=== PATIENT | female | born 1935 | race Caucasian/White ===

== ENCOUNTER 2016-10-06 13:27 | Inpatient (IN) | payer OTHER ==
[~2016-10-06] VITALS: Ht 160 cm; Wt 91.0 kg
[~2016-10-06 13:27] MED LIST: ARTISOL8 OPB; AZAT50TA17 PEG; ELCCR115 TOP; ESCI5TAB PEG; GLIP5TAB3 PO; NITR0.4S UT; NYSS/ PO; OXYC1TAB3 PO; PRED20TA PEG; SYN150 PEG; TIMO0.2534 OPB; TRIA0.1L TOP; TRIA3AER NAE; VERA120T5 PEG; [UNRECOGNIZED DRUG - CODE] PEG
[2016-10-06] MEDS ORDERED: ONDANSETRON INJ 2 MG/ML 2 ML VIAL IV STA (14:50)
[2016-10-06] MEDS ORDERED: SODIUM CHLORIDE 0.9% 1000ML 1,000 ML IV STA ×2 (14:50)
--- NOTE | 2016-10-06 15:17 | DIAGNOSTIC IMAGING REPORT ---
CHEST ONE VIEW PORTABLE CLINICAL HISTORY: Pain radiating to the abdomen. Flulike virus. COMPARISON STUDY: No previous studies for comparison. FINDINGS: The heart is within normal limits in size. There is no focal pulmonary consolidation. There is slight interstitial prominence without evidence of overt failure. There are no pleural effusions.[ No free air is visualized. IMPRESSION: No active disease in the chest. Electronically signed by: Last Duque M.D. 10/06/2016 3:15 PM
[2016-10-06] MEDS ORDERED: MULT-506 PO (15:53)
[2016-10-06] MEDS ORDERED: PRLSR20 PO (15:53)
[2016-10-06 16:04] LABS: BASO % 0.1 %; BASO ABS # 0.01 K/uL (0-0.2); COMPLETE YES; EOS % 0.1 %; HEMATOCRIT 43.7 % (37-47); IG% 0.3 %; LYMPH % 1.8 %; LYMPH ABS # 0.21 K/uL (1.2-3.4); MEAN CORPUSCULAR HEMOGLOBIN 31.8 pg (25-34); MEAN CORPUSCULAR HGB CONC 34.6 g/dl (32-36); MEAN PLATELET VOLUME 12.3 fL (7.4-10.4); MONO % 1.4 %; NEUT % 96.3 %; PLATELET COUNT 175 K/uL (130-400); RED BLOOD COUNT 4.75 M/uL (4.2-5.4)
[2016-10-06 16:57] LABS: ALKALINE PHOSPHATASE 41 U/L (45-117); ALT/SGPT 28 U/L (12-78); AST/SGOT 31 U/L (15-37); BLOOD UREA NITROGEN 21 mg/dl (7-18); BUN/CREATININE RATIO 21.4 (10-20); CALCIUM 8.5 mg/dl (8.5-10.1); CARBON DIOXIDE 22 mmol/L (21-32); CHLORIDE 106 mmol/L (98-107); CKMB/CK RATIO 0.6 (0-3.0); GLUCOSE 197 mg/dl (70-99); POTASSIUM 3.8 mmol/L (3.5-5.1); SODIUM 140 mmol/L (136-145)
[2016-10-06] MEDS ORDERED: OXYCODONE HCL IR 5 MG TAB (IMMEDIATE RELEASE) PO PRN (20:00)
[2016-10-06] MEDS ORDERED: ARTIFICIAL TEARS OP SOLN OPB PRN ×2 (20:00)
[2016-10-06] MEDS ORDERED: ONDANSETRON INJ 2 MG/ML 2 ML VIAL IV PRN (20:15)
[2016-10-06] MEDS ORDERED: MAGNESIUM HYDROXIDE SUSP 30 ML UDC PO PRN (20:15)
[2016-10-06] MEDS ORDERED: ACETAMINOPHEN 325 MG TAB PO PRN (20:15)
[2016-10-06] MEDS: INSULIN ASPART 100 UNITS/ML 3 ML PEN SC SCH (21:00)
[2016-10-06] MEDS ORDERED: GLUCAGON FOR INJ 1 MG VIAL SQ PRN (21:00)
[2016-10-06] MEDS ORDERED: VERAPAMIL HCL 40 MG TAB PEG SCH (21:00)
[2016-10-06] MEDS ORDERED: GLUCOSE 10 TABS/TUBE PO PRN (21:00)
[2016-10-06] MEDS ORDERED: DEXTROSE 50% 50 ML SYR IV PRN (21:00)
[2016-10-06] MEDS ORDERED: GLUCOSE 40% GEL 15 GM TUBE PO PRN (21:00)
[2016-10-06 22:00] VITALS: BP 119/72; PULSE 108; TEMP 38.5; O2SAT 94
[2016-10-06 22:17] LABS: PROTHROMBIN TIME (PATIENT) 11.1 SECONDS (9.0-12.0)
[2016-10-06] MEDS: SODIUM CHLORIDE 0.9% 1000ML 1,000 ML IV SCH (22:34)
[2016-10-06 23:14] VITALS: Ht 160 cm; Wt 91.0 kg
[2016-10-06 23:29] VITALS: BP 111/64; PULSE 92; TEMP 38.5; O2SAT 97
[2016-10-06] MEDS ORDERED: IV FLUIDS COMPLETED PRN (23:30)
[2016-10-06 23:57] LABS: URINE APPEARANCE CLOUDY (CLEAR); URINE COLOR DK YELLOW; URINE EPITHELIAL CELL AUTO >30 /lpf (0-5); URINE NITRITE NEG (NEG); URINE PH 5.5 (4.5-7.5); URINE SPECIFIC GRAVITY 1.034 (1.000-1.030); UROBILINOGEN NEG (NEG); ZZUR CULT IF INDIC CLEAN CATCH YES
[2016-10-07 00:08] LABS: MANUAL MICROSCOPIC REQUIRED? NO; REVIEW REQ? YES; URINE BILIRUBIN NEG (NEG)
[2016-10-07] MEDS: CIPROFLOXACIN / D5W 400 MG in PREMIXED IN D5W 200 ML IV SCH ×3 (00:10→20:46)
[2016-10-07] MEDS ORDERED: NURSING VERBAL MED ORDER ONE (00:30)
--- NOTE | 2016-10-07 00:36 | HISTORY & PHYSICAL EXAMINATION ---
DATE OF ADMISSION: 10/06/2016 REASON FOR PRESENTATION: Diarrheal illness. HISTORY OF PRESENT ILLNESS: Ms. 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 The patient also has had some Sjogren's syndrome and dermatomyositis. The patient states that [facility], she returned home and ate some turkey which was leftover from [employer]. Her and she ate the turkey; they both became sick around 12:30 the day of admission. She has muscle pains all over her body, has focal abdominal pain and loose brown malodorous diarrhea. The patient typically has pain all over from her multiple health problems. She, however, is not having any rigors or shaking chills. PAST MEDICAL HISTORY: For autoimmune hepatitis, peptic ulcer disease with esophageal stricture, impaired fasting glucose, diabetes, hypothyroidism, Sjogren's syndrome, chronic back pain with lumbar spinal stenosis, glaucoma, rectocele repair, breast biopsy, rotator cuff repair, tubal ligation and cataract surgery. SOCIAL HISTORY: She is . She has 3 children. She denies any tobacco or alcohol use. FAMILY HISTORY: Hypertension and diabetes. MEDICATIONS: Include the following; azathioprine 150 mg a day, verapamil 120 a day, OxyIR as needed, Synthroid 175 mcg a day, artificial tears 2 drops as needed, omeprazole 20 a day, multivitamin once a day and Glucotrol 2.5 q. 12 hours. REVIEW OF SYSTEMS: Ten systems were reviewed and are negative unless listed above. PHYSICAL EXAMINATION: GENERAL: She is a pleasant female. VITAL SIGNS: She was febrile at 38.5, pulse 108, respirations 20, BP 118/72. HEENT: PERRL, EOMI. Oropharynx clear. She has maybe dry mucous membranes. NECK: Without lymphadenopathy. Trachea is midline. HEART: Regular without murmurs. LUNGS: Clear without wheezes or crackles. ABDOMEN: Normoactive bowel sounds, soft, mildly tender in the epigastrium. EXTREMITIES: Without cyanosis, clubbing or edema. NEUROLOGIC: She is awake, alert and appropriate. Cranial nerves II-XII are intact. Equal symmetrical strength and sensation. LABORATORY DATA: She has white count of 11, H\T\H 15 and 43, platelet count 175, BUN and creatinine of 21 and 1.0, glucose 197. INR is normal. Chest x-ray is unremarkable. ASSESSMENT: An 81-year-old immunosuppressed female here with diarrheal illness similar to her 's. PLAN: The patient will be observed in our facility. She will be hydrated with fluids. She will be maintained on her Imuran dose at this time. The patient will be placed on antibiotics. If an infectious diarrhea, we will have to use ciprofloxacin in this case. The patient will be maintained on her home medications. She will have an insulin sliding scale used for diabetic management as her oral intake is unknown at this time. Stool cultures, blood cultures and urine cultures will be sent. Heparin will be used for DVT prevention and her Calan dose will need to be clarified as was last recorded via PEG. choose extended release b.i.d. as her blood pressure is in stable condition at this time. A proton pump inhibitor will be given intravenously. She is a full code. MTDD
[2016-10-07] MEDS: HEPARIN SOD 5000 UNIT/0.5 ML CARP SQ SCH ×3 (00:43→20:58)
[2016-10-07] MEDS ORDERED: NAPROXEN 250 MG TAB PO PRN (00:45)
--- NOTE | 2016-10-07 00:58 | EMERGENCY ROOM VISIT NOTE ---
History Report prepared by Susan: Shea Ortiz Under the Supervision of: Dr. Bud Juarez M.D. First contact with patient: 14:36 Chief Complaint: VOMITING Stated Complaint: FLU Nursing Triage Summary: Triage Note; pt reports nausea, vomitting, diarrhea since 0600 today. History of Present Illness The patient is an 81 year old female who presents to the Emergency Room with complaints of persistent vomiting and diarrhea that started around 0600 this morning. She is accompanied by her , who is also sick, and her daughter. The last time she vomited or experienced diarrhea was around 1230 today, before she came to the ED. She currently complains of muscle pains "all over" her body. She has a history of spinal stenosis and complains of increased back pain recently. She also admits to some intermittent chest pain for the past 3 to 4 weeks, but states she is scheduled to see her [employer], Dr. Ge with [facility], later this week for these symptoms. She reports both she and her ate leftover turkey with gravy recently, and she thinks that may have caused their symptoms. She denies any recent antibiotic use. The patient denies LOC, headache, fevers, chills, diaphoresis, visual changes, neck pain, breathing difficulties, abdominal pain, back pain, melena, hematochezia, urinary symptoms, numbness, weakness, lymphadenopathy, rash, or other complaints. Source of History: patient, family Onset: 0600 this morning Position: abdomen Timing: other (persistent) Associated Symptoms: + back pain, + chest pain, + nausea Review of Systems See HPI for pertinent positives and negatives. A total of ten systems were reviewed and were otherwise negative. Past Medical & Surgical Medical Problems: (1) Autoimmune hepatitis (2) Diarrhea (3) new start tube feeding (4) Spinal stenosis Social History Smoking Status: Never Smoker Smokeless Tobacco Use: No Alcohol Use: none Drug Use: none Marital Status: Housing Status: lives with family Occupation Status: retired Current/Historical Medications Scheduled Artificial Tears (Artificial Tears), 1-2 DROPS OPB PRN Azathioprine (Imuran), 150 MG PEG DAILY @ NOON Glipizide (Glucotrol), 2.5 MG PO Q12 Levothyroxine (Synthroid *), Unknown Dose PEG QAM Multivitamin (Multivitamin), 1 TAB PO DAILY Nitroglycerin (Nitrostat), 0.4 MG UT PRN Oxycodone Ir (Roxicodone Ir), 5 MG PO BID PRN Verapamil Hcl (Calan), 120 MG PEG TID Scheduled PRN Omeprazole (Prilosec), 20 MG PO DAILY PRN for Nausea Allergies Coded Allergies: Penicillins (Verified Allergy, Unknown, 12/08/[address] ALLERGIES PER DR CLARK H&P, 10/06/16) Tramadol (Unverified Adverse Reaction, Unknown, hallucinations, 10/06/16) Physical Exam Vital Signs Date Time Temp Pulse Resp B/P Pulse Ox O2 Delivery O2 Flow Rate FiO2 10/06/16 19:33 108 92 10/06/16 19:28 123/53 10/06/16 19:03 106 25 94 10/06/16 18:59 136/64 10/06/16 18:33 106 16 95 10/06/16 18:28 129/64 10/06/16 18:27 105 23 10/06/16 17:58 144/62 10/06/16 17:57 107 27 94 10/06/16 17:28 135/57 10/06/16 17:27 103 26 95 10/06/16 17:02 101 20 121/51 97 Room Air 10/06/16 16:59 121/51 10/06/16 16:57 101 15 97 10/06/16 16:28 128/49 10/06/16 16:27 101 17 94 10/06/16 16:22 102 10/06/16 15:59 137/68 10/06/16 13:50 37.8 112 18 124/74 94 Room Air Physical Exam GENERAL: Awake, alert, uncomfortable-appearing, in no acute distress HENT: Normocephalic, atraumatic. Oropharynx unremarkable. Very dry mucous membranes. EYES: Normal conjunctiva. Sclera non-icteric. NECK: Supple. No nuchal rigidity. FROM. No JVD. RESPIRATORY: Clear to auscultation. CARDIAC: Regular rate, normal rhythm. Extremities warm and well perfused. Pulses equal. ABDOMEN: Soft, non-distended. No tenderness to palpation. No rebound or guarding. No masses. RECTAL: Deferred. MUSCULOSKELETAL: Chest examination reveals no tenderness. The back is symmetrical on inspection without obvious abnormality. There is no CVA tenderness to palpation. No joint edema. LOWER EXTREMITIES: Calves are equal size bilaterally and non-tender. No edema. No discoloration. NEURO: Normal sensorium. No sensory or motor deficits noted. SKIN: No rash or jaundice noted. Medical Decision & Procedures ER Provider Diagnostic Interpretation: This X-Ray was reviewed and interpreted by myself and the radiologist. CHEST ONE VIEW PORTABLE CLINICAL HISTORY: Pain radiating to the abdomen. Flulike virus. COMPARISON STUDY: No previous studies for comparison. FINDINGS: The heart is within normal limits in size. There is no focal pulmonary consolidation. There is slight interstitial prominence without evidence of overt failure. There are no pleural effusions.[ No free air is visualized. IMPRESSION: No active disease in the chest. Electronically signed by: Last Duque M.D. 10/06/2016 3:15 PM Laboratory Results 10/06/16 15:31 Red Blood Count 4.75, Mean Corpuscular Volume 92.0, Mean Corpuscular Hemoglobin 31.8, Mean Corpuscular Hemoglobin Concent 34.6, Mean Platelet Volume 12.3, Neutrophils (%) (Auto) 96.3, Lymphocytes (%) (Auto) 1.8, Monocytes (%) (Auto) 1.4, Eosinophils (%) (Auto) 0.1, Basophils (%) (Auto) 0.1, Neutrophils # (Auto) 11.08, Lymphocytes # (Auto) 0.21, Monocytes # (Auto) 0.16, Eosinophils # (Auto) 0.01, Basophils # (Auto) 0.01 10/06/16 15:31 Test 10/06/16 15:31 White Blood Count 11.50 K/uL (4.8-10.8) Red Blood Count 4.75 M/uL (4.2-5.4) Hemoglobin 15.1 g/dL (12.0-16.0) Hematocrit 43.7 % (37-47) Mean Corpuscular Volume 92.0 fL (80-100) Mean Corpuscular Hemoglobin 31.8 pg (25-34) Mean Corpuscular Hemoglobin Concent 34.6 g/dl (32-36) Platelet Count 175 K/uL (130-400) Mean Platelet Volume 12.3 fL (7.4-10.4) Neutrophils (%) (Auto) 96.3 % Lymphocytes (%) (Auto) 1.8 % Monocytes (%) (Auto) 1.4 % Eosinophils (%) (Auto) 0.1 % Basophils (%) (Auto) 0.1 % Neutrophils # (Auto) 11.08 K/uL (1.4-6.5) Lymphocytes # (Auto) 0.21 K/uL (1.2-3.4) Monocytes # (Auto) 0.16 K/uL (0.11-0.59) Eosinophils # (Auto) 0.01 K/uL (0-0.5) Basophils # (Auto) 0.01 K/uL (0-0.2) RDW Standard Deviation 48.5 fL (36.4-46.3) RDW Coefficient of Variation 14.4 % (11.5-14.5) Immature Granulocyte % (Auto) 0.3 % Immature Granulocyte # (Auto) 0.03 K/uL (0.00-0.02) Anion Gap 12.0 mmol/L (3-11) Est Creatinine Clear Calc Drug Dose 48.0 ml/min Estimated GFR () 61.6 Estimated GFR (Non- 53.2 BUN/Creatinine Ratio 21.4 (10-20) Calcium Level 8.5 mg/dl (8.5-10.1) Total Bilirubin 0.8 mg/dl (0.2-1) Direct Bilirubin mg/dl (0-0.2) Aspartate Amino Transf (AST/SGOT) 31 U/L (15-37) Alanine Aminotransferase (ALT/SGPT) 28 U/L (12-78) Alkaline Phosphatase 41 U/L (45-117) Total Creatine Kinase 105 U/L (26-192) Creatine Kinase MB 0.6 ng/ml (0.5-3.6) Creatine Kinase MB Ratio 0.6 (0-3.0) Troponin I 0.032 ng/ml (0-0.045) Total Protein 7.7 gm/dl (6.4-8.2) Albumin 3.4 gm/dl (3.4-5.0) Lipase 104 U/L (73-393) Chemistry Specimen Hemolysis Laboratory results reviewed by me Medications Administered Medications (Trade) Dose Ordered Sig/Catrachito Route Start Time Stop Time Status Last Admin Dose Admin Sodium Chloride 1,000 ml @ 125 mls/hr Q8H STAT IV 12/30/16 14:50 10/06/16 21:59 DC 10/06/16 18:14 125 MLS/HR Sodium Chloride (Nss 1000ml) 1,000 ml @ 999 mls/hr Q1H1M STAT IV 10/06/16 14:50 10/06/16 15:50 DC 10/06/16 14:50 999 MLS/HR Ondansetron HCl (Zofran Inj) 4 mg NOW STAT IV 10/06/16 14:50 10/06/16 14:54 DC 10/06/16 15:47 4 MG ECG Indication: other (Flu symptoms) Rate (beats per minute): 104 Rhythm: sinus tachycardia Findings: nonspecific-ST abn, no acute ischemic change, no ectopy ED Course 1441: The patient was evaluated in room C11A. A complete history and physical exam was performed. 1450: Zofran 4 mg IV, NSS 1000 ml @ 999 mls/hr IV, NSS 1000 ml @ 125 mls/hr IV. 1628: I reevaluated the patient. She is feeling well but still thirsty. I will get her some water and ice chips. 1800: I reevaluated the patient. She states she still feels weak. I discussed my plan for her to remain in the hospital for further evaluation and management and she and her family verbalized complete understanding and agreement. 1808: I discussed the patients case with Dr. Oconnell, [facility] Hospitalist. The patient will be further evaluated. Medical Decision Triage Nursing notes reviewed. The patient's presentation and history were concerning for nausea, vomiting and diarrhea. Etiologies such as gastroenteritis, food borne illness, infections, obstruction , pancreatitis, appendicitis, diverticulitis, inflammatory bowel disease, GI bleed, biliary pathology, toxicologic as well as others were entertained. The patient was evaluated. She was generally weak. She was hydrated and given IV Zofran. She had a slight leukocytosis and dehydration on her blood work. Cardiac markers were negative. ECG and chest x-ray were unremarkable. On reassessment the patient still very weak but the vomiting had resolved. She did not feel well enough to go home. Consultation was made with internal medicine and the patient was evaluated for further treatment. The chart was completed utilizing [employer] voice recognition software. Grammatical errors, random word insertions, pronoun errors, and incomplete sentences are an occasional consequence of this system due to software limitations, ambient noise, and hardware issues. Any formal questions or concerns about the content, text, or information contained within the body of this dictation should be directly addressed to the physician for clarification. Consults Time Called: 1801 Consulting Physician: Dr. Oconnell [facility] Hospitalist Returned Call: 1807 I discussed the patients case with Dr. Oconnell [facility] Hospitalist. The patient will be further evaluated. Impression Primary Impression: Nausea, vomiting, and diarrhea Additional Impression: Dehydration Scribe Attestation The scribe's documentation has been prepared under my direction and personally reviewed by me in its entirety. I confirm that the note above accurately reflects all work, treatment, procedures, and medical decision making performed by me. Departure Information Dispostion Being Evaluated By Hospitalist Referrals Stanley Zavaleta M.D. (PCP) Patient Instructions A Signature Page, My [facility]
[2016-10-07 04:25] VITALS: TEMP 37.4
[2016-10-07] MEDS: LEVOTHYROXINE 175 MCG TAB PO SCH (06:23)
[2016-10-07] MEDS: INSULIN ASPART 100 UNITS/ML 3 ML PEN SC SCH ×4 (06:30→20:55)
[2016-10-07 07:40] VITALS: BP 94/59; PULSE 74; TEMP 37; O2SAT 96
[2016-10-07] MEDS: VERAPAMIL HCL 180 MG TABCR PO SCH ×2 (08:36→20:55)
[2016-10-07] MEDS: AZATHIOPRINE 50 MG TAB PO SCH (08:37)
[2016-10-07] MEDS: SODIUM CHLORIDE 0.9% 1000ML 1,000 ML IV SCH ×2 (08:38→17:13)
--- NOTE | 2016-10-07 14:45 | Progress Note ---
Subjective Date of Service: Oct 07, 2016. Subjective Pt evaluation today including: conversation w/ patient, conversation w/ family , chart review, lab review, review of studies, conversation w/ solution consultant Pain: still has mild abd pain, PO Intake: poor Voiding: no voiding problems seen and examined awake and alert, afebrile, no CP or SOB, still has mild abd discomfort, and cont to have diarrhea and was not able to eat her liquid diet, no fever or chill, admitted in the same room w her Problem List Medical Problems: (1) Dehydration Status: Acute (2) Nausea, vomiting, and diarrhea Status: Acute Review of Systems Constitutional: + see HPI Eyes: + see HPI ENT: + see HPI Respiratory: + see HPI Cardiac: + see HPI Abdomen: + diarrhea, + nausea, + pain Musculoskeletal: + see HPI Female : + see HPI Neurologic: + see HPI Psychiatric: + see HPI Skin: + see HPI Objective Vital Signs Date Time Temp Pulse Resp B/P Pulse Ox O2 Delivery O2 Flow Rate FiO2 10/07/16 10:31 Room Air 10/07/16 07:40 37.0 74 16 94/59 96 Room Air 10/07/16 04:25 37.4 10/07/16 00:00 Room Air 10/06/16 23:29 38.5 92 20 111/64 97 Room Air 10/06/16 23:14 Room Air 10/06/16 22:00 38.5 108 20 119/72 94 Room Air 10/06/16 21:25 37.8 105 25 126/61 94 10/06/16 20:58 126/61 10/06/16 20:33 105 94 10/06/16 20:29 144/52 10/06/16 19:33 108 92 10/06/16 19:28 123/53 10/06/16 19:03 106 25 94 10/06/16 18:59 136/64 10/06/16 18:33 106 16 95 10/06/16 18:28 129/64 10/06/16 18:27 105 23 10/06/16 17:58 144/62 10/06/16 17:57 107 27 94 10/06/16 17:28 135/57 10/06/16 17:27 103 26 95 10/06/16 17:02 101 20 121/51 97 Room Air 10/06/16 16:59 121/51 10/06/16 16:57 101 15 97 10/06/16 16:28 128/49 10/06/16 16:27 101 17 94 10/06/16 16:22 102 10/06/16 15:59 137/68 Physical Exam General Appearance: no apparent distress, + obese Eyes: normal inspection ENT: normal ENT inspection, hearing grossly normal Neck: supple, thyroid normal, no carotid bruits Respiratory/Chest: chest non-tender, lungs clear, normal breath sounds, no accessory muscle use Cardiovascular: regular rate, rhythm, no edema, no gallop, no JVD, no murmur Abdomen: normal bowel sounds, non tender, soft, no organomegaly Extremities: normal range of motion, non-tender, normal inspection, no pedal edema Neurologic/Psychiatric: no motor/sensory deficits, alert, normal mood/affect, oriented x 3 Skin: normal color, warm/dry, no rash Laboratory Results Last 24 Hours Test 10/06/16 15:31 10/06/16 21:50 10/06/16 22:42 10/06/16 23:20 White Blood Count 11.50 K/uL Red Blood Count 4.75 M/uL Hemoglobin 15.1 g/dL Hematocrit 43.7 % Mean Corpuscular Volume 92.0 fL Mean Corpuscular Hemoglobin 31.8 pg Mean Corpuscular Hemoglobin Concent 34.6 g/dl Platelet Count 175 K/uL Mean Platelet Volume 12.3 fL Neutrophils (%) (Auto) 96.3 % Lymphocytes (%) (Auto) 1.8 % Monocytes (%) (Auto) 1.4 % Eosinophils (%) (Auto) 0.1 % Basophils (%) (Auto) 0.1 % Neutrophils # (Auto) 11.08 K/uL Lymphocytes # (Auto) 0.21 K/uL Monocytes # (Auto) 0.16 K/uL Eosinophils # (Auto) 0.01 K/uL Basophils # (Auto) 0.01 K/uL RDW Standard Deviation 48.5 fL RDW Coefficient of Variation 14.4 % Immature Granulocyte % (Auto) 0.3 % Immature Granulocyte # (Auto) 0.03 K/uL Sodium Level 140 mmol/L Potassium Level 3.8 mmol/L Chloride Level 106 mmol/L Carbon Dioxide Level 22 mmol/L Anion Gap 12.0 mmol/L Blood Urea Nitrogen 21 mg/dl Creatinine 1.00 mg/dl Est Creatinine Clear Calc Drug Dose 48.0 ml/min Estimated GFR () 61.6 Estimated GFR (Non- 53.2 BUN/Creatinine Ratio 21.4 Random Glucose 197 mg/dl Calcium Level 8.5 mg/dl Total Bilirubin 0.8 mg/dl Direct Bilirubin mg/dl Aspartate Amino Transf (AST/SGOT) 31 U/L Alanine Aminotransferase (ALT/SGPT) 28 U/L Alkaline Phosphatase 41 U/L Total Creatine Kinase 105 U/L Creatine Kinase MB 0.6 ng/ml Creatine Kinase MB Ratio 0.6 Troponin I 0.032 ng/ml Total Protein 7.7 gm/dl Albumin 3.4 gm/dl Lipase 104 U/L Chemistry Specimen Hemolysis Prothrombin Time 11.1 SECONDS Prothromb Time International Ratio 1.0 Bedside Glucose 118 mg/dl Urine Color DK YELLOW Urine Appearance CLOUDY Urine pH 5.5 Urine Specific [place] 1.034 Urine Protein TRACE Urine Glucose (UA) TRACE Urine Ketones TRACE Urine Occult Blood 2+ Urine Nitrite NEG Urine Bilirubin NEG Urine Urobilinogen NEG Urine Leukocyte Esterase MODERATE Urine WBC (Auto) 10-30 /hpf Urine RBC (Auto) 0-4 /hpf Urine Hyaline Casts (Auto) 1-5 /lpf Urine Epithelial Cells (Auto) >30 /lpf Urine Bacteria (Auto) 4+ Urine Crystals URIC ACID Urine Yeast (Auto) BUDDING Test 10/07/16 08:02 10/07/16 11:41 Bedside Glucose 110 mg/dl 137 mg/dl Assessment and Plan Acute gastroenteritis likely viral , has some problem, still has diarrhea IVF liquid diet recheck lytes and renal fun Dehydration, improving Diarrhea HTN Verapamil, monitor VS autoimmune hepatitis, peptic ulcer disease with esophageal stricture, Diabetes, hypothyroidism, Sjogren's syndrome chronic back pain with lumbar spinal stenosis glaucoma, rectocele repair, plan as above IVF recheck lytes and RF monitor VS and BS all dw her and her not ready for DC change to inpat Continued [facility] stay due to: inadequate po fluid intake Discharge planning: home
[2016-10-07 15:14] VITALS: BP 99/62; PULSE 66; TEMP 36.5; O2SAT 93
[2016-10-07] MEDS: FLUCONAZOLE / NSS 200 MG in PREMIXED NSS 100 ML IV SCH (15:40)
[2016-10-07 19:14] VITALS: BP 114/76; PULSE 78; TEMP 36.8; O2SAT 95
[2016-10-07 23:21] VITALS: BP 93/57; PULSE 73; TEMP 37.5; O2SAT 91
[2016-10-08 02:38] VITALS: BP 105/62; PULSE 73; O2SAT 93
[2016-10-08] MEDS: SODIUM CHLORIDE 0.9% 1000ML 1,000 ML IV SCH ×2 (04:44→15:04)
[2016-10-08] MEDS: ALUMINUM/MAGNESIUM/SIMETH (MAALOX MAX) 30 ML UDC PO PRN (04:49)
[2016-10-08] MEDS ORDERED: NURSING VERBAL MED ORDER ONE (05:45)
[2016-10-08] MEDS ORDERED: PANTOprazole INJ 40 MG in SYRINGE 0 ML IV STA (05:56)
[2016-10-08] MEDS: LEVOTHYROXINE 175 MCG TAB PO SCH (06:15)
[2016-10-08 06:20] LABS: BUN/CREATININE RATIO 14.7 (10-20); CREATININE 0.69 mg/dl (0.60-1.20); MAGNESIUM 1.5 mg/dl (1.8-2.4); PHOSPHORUS 1.6 mg/dl (2.5-4.9)
[2016-10-08 07:01] LABS: CALCIUM 7.5 mg/dl (8.5-10.1)
[2016-10-08] MEDS ORDERED: POTASSIUM CHLORIDE 10 MEQ TABCR PO STA ×3 (07:19→20:04)
[2016-10-08 08:14] VITALS: BP 113/65; PULSE 85; TEMP 37.6; O2SAT 94
[2016-10-08] MEDS: SACCHAROMYCES BOUL (FLORASTOR) 250 MG CAP PO SCH (08:23)
[2016-10-08] MEDS: VERAPAMIL HCL 180 MG TABCR PO SCH ×2 (08:24→20:52)
[2016-10-08] MEDS: AZATHIOPRINE 50 MG TAB PO SCH (08:25)
[2016-10-08] MEDS: MAGNESIUM SULFATE 1GM / D5W 1 GM in PREMIXED IN D5W 100 ML IV SCH ×2 (08:25→09:43)
[2016-10-08] MEDS: INSULIN ASPART 100 UNITS/ML 3 ML PEN SC SCH ×4 (08:34→21:00)
[2016-10-08] MEDS: HEPARIN SOD 5000 UNIT/0.5 ML CARP SQ SCH ×2 (09:41→22:28)
[2016-10-08] MEDS: CIPROFLOXACIN / D5W 400 MG in PREMIXED IN D5W 200 ML IV SCH ×2 (10:58→20:52)
[2016-10-08 14:13] LABS: BUN/CREATININE RATIO 10.7 (10-20); CALCIUM 7.3 mg/dl (8.5-10.1); CREATININE 0.76 mg/dl (0.60-1.20); POTASSIUM 3.4 mmol/L (3.5-5.1)
[2016-10-08 15:21] VITALS: BP 107/71; PULSE 73; TEMP 37; O2SAT 95
[2016-10-08] MEDS: FLUCONAZOLE / NSS 200 MG in PREMIXED NSS 100 ML IV SCH (15:54)
--- NOTE | 2016-10-08 20:25 | Hospitalist Progress Note ---
Hospitalist Progress Note Date of Service Oct 08, 2016. Subjective Pt evaluation today including: conversation w/ patient, physical exam, chart review, lab review, review of studies, review of inpatient medication list PO Intake: delilah clears Voiding: no voiding problems Still with 8-9 loose bowel movements today. having burning constant in chest all day since 0500 that was relieved with Maalox this AM but persists somewhat. Ready to try to advance diet Constitutional: No fever Abdomen: + diarrhea, No nausea, No pain, No vomiting All Other Systems: Reviewed and Negative Objective Vital Signs Date Time Temp Pulse Resp B/P Pulse Ox O2 Delivery O2 Flow Rate FiO2 10/08/16 16:05 Room Air 10/08/16 15:21 37.0 73 18 107/71 95 Room Air 10/08/16 08:25 Room Air 10/08/16 08:14 37.6 85 20 113/65 94 Room Air 10/08/16 02:38 73 20 105/62 93 Room Air 10/08/16 00:05 Room Air 10/07/16 23:21 37.5 73 16 93/57 91 Room Air Physical Exam General Appearance: WD/WN, no apparent distress Eyes: normal inspection, sclerae normal Neck: trachea midline Respiratory/Chest: normal breath sounds, no respiratory distress, no accessory muscle use Cardiovascular: regular rate, rhythm, no edema, no gallop, no murmur Abdomen: normal bowel sounds, non tender, soft Extremities: non-tender, normal inspection, no pedal edema, no calf tenderness Neurologic/Psychiatric: alert, normal mood/affect, oriented x 3 Skin: normal color, warm/dry, no rash Laboratory Results Last 24 Hours Test 10/08/16 05:15 10/08/16 07:48 10/08/16 11:26 10/08/16 13:13 Sodium Level 142 mmol/L 140 mmol/L Potassium Level 3.0 mmol/L 3.4 mmol/L Chloride Level 111 mmol/L 108 mmol/L Carbon Dioxide Level 22 mmol/L 22 mmol/L Anion Gap 9.0 mmol/L 10.0 mmol/L Blood Urea Nitrogen 10 mg/dl 8 mg/dl Creatinine 0.69 mg/dl 0.76 mg/dl Est Creatinine Clear Calc Drug Dose 69.6 ml/min 63.2 ml/min Estimated GFR () 95.3 85.9 Estimated GFR (Non- 82.2 74.1 BUN/Creatinine Ratio 14.7 10.7 Random Glucose 91 mg/dl 182 mg/dl Calcium Level 7.5 mg/dl 7.3 mg/dl Phosphorus Level 1.6 mg/dl Magnesium Level 1.5 mg/dl Albumin 2.8 gm/dl Bedside Glucose 108 mg/dl 172 mg/dl Test 10/08/16 16:58 Bedside Glucose 106 mg/dl Assessment and Plan Acute gastroenteritis likely viral , had some problem, still has diarrhea but improved today continue IVFs for now and then stop after this bag adv diet to low residue and likely d/c tomorrow replace K+ and check again tomorrow Dehydration, improving HTN Verapamil, monitor VS autoimmune hepatitis, peptic ulcer disease with esophageal stricture--> add on IV Pepcid Diabetes-continue SSI, accuchecks hypothyroidism-continue synthroid Sjogren's syndrome-stable chronic back pain with lumbar spinal stenosis-stable glaucoma-stable
[2016-10-08 22:24] LABS: URINE APPEARANCE CLEAR (CLEAR); URINE BILIRUBIN NEG (NEG); URINE COLOR YELLOW; URINE NITRITE NEG (NEG); URINE SPECIFIC GRAVITY 1.003 (1.000-1.030); UROBILINOGEN NEG (NEG)
[2016-10-08 22:25] LABS: MANUAL MICROSCOPIC REQUIRED? NO; REVIEW REQ? NO
[2016-10-08] MEDS: FAMOTIDINE IV INJ 20 MG in DEXTROSE 5% 100ML 100 ML IV SCH (22:57)
[2016-10-09 00:12] VITALS: BP 106/63; PULSE 84; TEMP 36.7; O2SAT 94
[2016-10-09] MEDS: SODIUM CHLORIDE 0.9% 1000ML 1,000 ML IV SCH (00:43)
[2016-10-09] MEDS: ALUMINUM/MAGNESIUM/SIMETH (MAALOX MAX) 30 ML UDC PO PRN ×2 (03:18→09:26)
[2016-10-09 05:02] VITALS: BP 128/68; PULSE 75; TEMP 36.8; O2SAT 95
[2016-10-09] MEDS: LEVOTHYROXINE 175 MCG TAB PO SCH (05:58)
[2016-10-09 06:27] LABS: HEMATOCRIT 33.2 % (37-47); MEAN CELL VOLUME 92.7 fL (80-100); MEAN CORPUSCULAR HGB CONC 33.4 g/dl (32-36); PLATELET COUNT 134 K/uL (130-400); RED BLOOD COUNT 3.58 M/uL (4.2-5.4); WHITE BLOOD COUNT 4.01 K/uL (4.8-10.8)
[2016-10-09 07:04] LABS: BUN/CREATININE RATIO 12.8 (10-20); CALCIUM 7.6 mg/dl (8.5-10.1); CREATININE 0.61 mg/dl (0.60-1.20); MAGNESIUM 2.3 mg/dl (1.8-2.4)
[2016-10-09 07:20] VITALS: BP 92/51; PULSE 69; TEMP 36.9; O2SAT 96
[2016-10-09 08:00] VITALS: O2SAT 96
[2016-10-09] MEDS: INSULIN ASPART 100 UNITS/ML 3 ML PEN SC SCH ×2 (08:17→11:49)
[2016-10-09] MEDS: CIPROFLOXACIN / D5W 400 MG in PREMIXED IN D5W 200 ML IV SCH (08:17)
[2016-10-09] MEDS: SACCHAROMYCES BOUL (FLORASTOR) 250 MG CAP PO SCH (08:18)
[2016-10-09] MEDS: AZATHIOPRINE 50 MG TAB PO SCH (08:18)
[2016-10-09] MEDS: HEPARIN SOD 5000 UNIT/0.5 ML CARP SQ SCH (08:20)
[2016-10-09] MEDS ORDERED: PANTOprazole INJ 40 MG in SYRINGE 0 ML IV SCH (09:00)
[2016-10-09] MEDS: VERAPAMIL HCL 180 MG TABCR PO SCH (09:00)
[2016-10-09] MEDS ORDERED: VERA120T5 PO (09:20)
[2016-10-09] MEDS ORDERED: SYN175 PO (09:20)
[2016-10-09] MEDS ORDERED: FLUC100T4 PO (09:20)
[2016-10-09] MEDS ORDERED: AZAT50TA17 PO (09:20)
[2016-10-09] MEDS ORDERED: PANT40TA PO (09:20)
--- NOTE | 2016-10-09 09:30 | Discharge Instructions ---
Discharge Instructions Admission Reason for Admission: Dehydration, Diarrhea, Nausea,Vomiting Discharge Discharge Diagnosis / Problem: Gastroenteritis, Nausea/vomiting/diarrhea Discharge Goals Goal(s): Improve disease control, Therapeutic intervention Activity Recommendations Activity Limitations: resume your previous activity . Instructions / Follow-Up Instructions / Follow-Up You were admitted with what was most likely a viral gastroenteritis. You were given IV fluids and improved. You developed constant sharp chest pain that is most likely due to your previous vomiting; you may have some persistent irritation of your esophagus. You were started on IV Pepcid and IV Protonix to help with this. You should continue the Protonix in a pill form after discharge and continue on a low fiber diet for the next week. You were also found to have a urinary tract infection with yeast. You were initially given 2 days of IV Cipro and IV Diflucan. Your urine culture did not grow out any bacteria and the Cipro will be stopped. You should continue on the Diflucan for 5 more days to get rid of the yeast. You should follow up with Dr. Zavaleta within the week. Current Hospital Diet Patient's current hospital diet: Diabetes Type 2 Diet, Low Fiber Diet Discharge Diet Recommended Diet: Diabetes Type 2 Diet, Low Fiber Diet Procedures Procedures Performed: Chest xray Pending Studies Studies pending at discharge: no Medical Emergencies . Who to Call and When: Medical Emergencies: If at any time you feel your situation is an emergency, please call 911 immediately. . Non-Emergent Contact Non-Emergency issues call your: Primary Care Provider Call Non-Emergent contact if: temperature is above 101, your pain is unusual for you, your pain is concerning you, you have any medication questions If you have recurrent vomiting or worsening diarrhea. Call if your heartburn or chest pain is worsening or not improving. . . "Provider Documentation" section prepared by Lu Bonner. VTE Core Measure Inpt VTE Proph given/why not?: Unfractionated heparin SQ
--- NOTE | 2016-10-09 09:50 | Discharge Summary ---
Discharge Summary Admission Date: Oct 07, 2016 at 14:38 Discharge Date: Oct 09, 2016 Discharge Disposition: Home Principal Diagnosis: Nausea/vomiting/diarrhea, Gastroenteritis Problems/Secondary Diagnoses: GERD UTI Hypokalemia HTN Mild aortic stenosis Autoimmune hepatitis Myasthenia gravis Poly-dermatomyositis Diabetes mellitus type II Hypothyroidism Sjogren's syndrome Chronic back pain with lumbar spinal stenosis Glaucoma Immunizations: Have You Had Influenza Vaccine: Yes Influenza Vaccine Date: Jul 08, 2011 History of Tetanus Vaccine?: Yes Tetanus Immunization Date: Jun 19, 2007 History of Pneumococcal: Yes Pneumococcal Date: Dec 06, 2005 History of Hepatitis B Vaccine: Yes Hepatitis Immunization Date: Dec 26, 2007 Procedures: CHEST ONE VIEW PORTABLE CLINICAL HISTORY: Pain radiating to the abdomen. Flulike virus. COMPARISON STUDY: No previous studies for comparison. FINDINGS: The heart is within normal limits in size. There is no focal pulmonary consolidation. There is slight interstitial prominence without evidence of overt failure. There are no pleural effusions.[ No free air is visualized. IMPRESSION: No active disease in the chest. Consultations: None Medication Reconciliation New Medications: Fluconazole (Diflucan) 100 Mg Tab 1 TAB PO DAILY for 5 Days, #5 TAB Pantoprazole Sodium (Protonix) 40 Mg Tab 40 MG PO QAM for heartburn, #30 TAB Levothyroxine Sodium (Synthroid) 175 Mcg Tab 175 MCG PO DAILYBB for 30 Days, TAB Changed Medications: Azathioprine (Imuran) 50 Mg Tab 150 MG PO DAILY @ NOON for 30 Days, 0 Refills (Changed from: PEG) TAKE THREE 50MG TABLETS DAILY @ NOON. Verapamil Hcl (Calan) 120 Mg Tab 120 MG PO TID for 30 Days (Changed from: PEG) Continued Medications: Artificial Tears (Artificial Tears) Adeola 1 - 2 DROPS OPB PRN, BTL TO AFFECTED EYE PRN Glipizide (Glucotrol) 5 Mg Tab 2.5 MG PO Q12 Multivitamin (Multivitamin) Tab 1 TAB PO DAILY, TAB Nitroglycerin (Nitrostat) 0.4 Mg Sub 0.4 MG UT PRN Oxycodone Ir (Roxicodone Ir) 5 Mg Tab 5 MG PO BID PRN, 0 Refills NEEDED FOR PAIN Discontinued Medications: Levothyroxine (Synthroid *) Unknown Strength Tab Unknown Dose PEG QAM, 0 Refills Omeprazole (Prilosec) 20 Mg Capcr 20 MG PO DAILY PRN for Nausea, CAP Referrals At Discharge Follow up Referrals: Physician Referral - Within 1 Week with Stanley Zavaleta M.D. Discharge Exam Pt doing much better, no more diarrhea, no N/V since admission, no abd pain. Still has some residual substernal sharp pain radiating to the upper back that is relieved with belching that is persistent for the last 1-2 days. She was given IV Pepcid, IV Protonix, and Maalox which resolved the pain prior to discharge. Review of Systems: Constitutional: No fever Eyes: No problem reported ENT: No problem reported Respiratory: No shortness of breath Cardiovascular: No chest pain Abdomen: No diarrhea, No nausea, No pain, No vomiting Musculoskeletal: No problem reported Genitourinary - Female: No problem reported Neurologic: No problem reported Psychiatric: No problem reported Endocrine: No problem reported Hematologic / Lymphatic: No problem reported Integumentary: No problem reported Physical Exam: General Appearance: WD/WN, no apparent distress Eyes: normal inspection, sclerae normal ENT: hearing grossly normal, + pertinent finding (scant amount of white patches on tongue) Neck: trachea midline Respiratory/Chest: lungs clear, normal breath sounds, no respiratory distress, no accessory muscle use Cardiovascular: regular rate, rhythm, no edema, no gallop, normal peripheral pulses, + systolic murmur (1/6 at RUSB) Abdomen / GI: normal bowel sounds, non tender, soft, no organomegaly Extremities: normal inspection, no calf tenderness, no pedal edema Neurologic/Psychiatric: alert, normal mood/affect, oriented x 3 Skin: normal color, warm/dry, no rash Hospital Course Ms. 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 The patient also has had some Sjogren's syndrome and poly -dermatomyositis, MG, and is also on IVIG q6 weeks. The patient states that she was traveling to [facility] over last 2 days, she returned home and ate some turkey which was leftover from [employer]. Her and she ate the turkey; they both became sick around 12:30 the day of admission. Later on, she found out that her children and grandchildren now all have nausea/vomiting/diarrhea as well. She had muscle pains all over her body, has focal abdominal pain and loose brown malodorous diarrhea. The patient typically has pain all over from her multiple health problems. She, however, is not having any rigors or shaking chills, but then did develop a fever the day of admission to 38.5 Tmax. Acute gastroenteritis, most likely viral. She was given IVFs and replaced her potassium. Her UA was dirty but did show yeast and she was treated with Cipro initially which was then discontinued. She was also treated with Dilfucan. Her urine culture showed mixed organisms. A repeat UA still showed some leukocyte esterase but still was contaminated with epis, but no more budding yeast. She did develop some substernal sharp chest pain that was burning in nature as well, some radiation to the upper back that was constant but was relieved with Maalox, Pepcid, and Protonix. SHe reported she had stopped taking her home Prilosec for the last month and will go back on a PPI upon discharge. She was tolerating a low fiber diet and was stable for discharge to home. All of her other usual meds for her other conditions were given with the exception of her glyburide which was held. Total Time Spent: Greater than 30 minutes This includes examination of the patient, discharge planning, medication reconciliation, and communication with other providers. Discharge Instructions Please refer to the electronic Patient Visit Report (Discharge Instructions) for additional information. Follow-Up With Dr. Zavaleta within 1 week Additional Copies To Stanley Zavaleta M.D.
[2016-10-09] MEDS: FAMOTIDINE IV INJ 20 MG in DEXTROSE 5% 100ML 100 ML IV SCH (11:35)
[2016-10-09 12:22] VITALS: BP 92/51; PULSE 69; TEMP 36.9; O2SAT 96
== END 2016-10-09 13:40 | disposition home or self-care (01) | DRG 392 ==
LOC: ENRESERVTM → ENRESERVDT → C.EDB 13:28 → C.MED 20:19 → OBSVTOIN 10-07 14:38
PROVIDERS: ADMIT Internal Medicine; ATTEND Internal Medicine
DX: K52.9 Noninfective gastroenteritis and colitis, unspecified (principal); N39.0 Urinary tract infection, site not specified; M36.0 Dermato(poly)myositis in neoplastic disease; B37.49 Other urogenital candidiasis; E03.9 Hypothyroidism, unspecified; H40.9 Unspecified glaucoma; E86.0 Dehydration; K27.9 Peptic ulcer, site unspecified, unspecified as acute or chronic, without hemorrhage or perforation; K22.2 Esophageal obstruction; E87.6 Hypokalemia; M48.06 Spinal stenosis, lumbar region; I35.0 Nonrheumatic aortic (valve) stenosis; K21.9 Gastro-esophageal reflux disease without esophagitis; B34.9 Viral infection, unspecified; E11.9 Type 2 diabetes mellitus without complications; I10 Essential (primary) hypertension; R07.89 Other chest pain; K75.4 Autoimmune hepatitis; G70.00 Myasthenia gravis without (acute) exacerbation; M35.00 Sjogren syndrome, unspecified; G89.29 Other chronic pain; M54.9 Dorsalgia, unspecified; Z79.84 Long term (current) use of oral hypoglycemic drugs; Z79.891 Long term (current) use of opiate analgesic; Z79.899 Other long term (current) drug therapy

== ENCOUNTER → 2016-10-18 | Outpatient (CLI) | payer OTHER ==
[~2016-10-18] MED LIST changes: -AZAT50TA17 PEG; +AZAT50TA17 PO; +CEFD300C2 PO; -ELCCR115 TOP; -ESCI5TAB PEG; +GLYCDRO6 OPB; +MULT-506 PO; -NYSS/ PO; +ONDA4TAB10 SL; +PANT40TA PO; -PRED20TA PEG; -SYN150 PEG; +SYN175 PO; -TIMO0.2534 OPB; +TMPOPS15; -TRIA0.1L TOP; -TRIA3AER NAE; -VERA120T5 PEG; +VERA120T5 PO; -[UNRECOGNIZED DRUG - CODE] PEG
--- NOTE | 2016-11-28 08:04 | CODING QUERY MEDICAL NECESSITY ---
SUPPORTING DIAGNOSIS NEEDED A supporting diagnosis is required for the test/procedure performed on this patient in order for us to be reimbursed by the patient's insurance. Please provide a supporting diagnosis for the following test/procedure listed below next to the test name along with your signature. *If there is no additional diagnosis for this patient that would support the following test/procedure please document that below next to the test/procedure. Test(s)/Procedure(s) that require a supporting diagnosis: * GLYCATED HEMOGLOBIN DIAGNOSIS: * DOS: 10/18/16 Provider Signature: Date: Thank you Perla Rolle Health Information Management Once completed, please kindly fax back to [phone] For questions please call [phone]
== END | disposition home or self-care (01) ==
LOC: C.PAPS 08:18
PROVIDERS: ATTEND Obstetrics & Gynecology
DX: N95.0 Postmenopausal bleeding (principal); Z01.419 Encounter for gynecological examination (general) (routine) without abnormal findings; N95.2 Postmenopausal atrophic vaginitis; M19.91 Primary osteoarthritis, unspecified site; M33.90 Dermatopolymyositis, unspecified, organ involvement unspecified; G70.00 Myasthenia gravis without (acute) exacerbation

== ENCOUNTER 2017-03-02 14:47 | Emergency (ER) | payer OTHER ==
[~2017-03-02] VITALS: Ht 154.9 cm; Wt 88.0 kg
[~2017-03-02 14:47] MED LIST changes: -CEFD300C2 PO; -GLYCDRO6 OPB; -ONDA4TAB10 SL; -PANT40TA PO; -TMPOPS15
[2017-03-02 15:07] VITALS: TEMP 36.9; Ht 154.9 cm; Wt 88.0 kg
[2017-03-02] MEDS ORDERED: GLYCDRO6 OPB (15:40)
[2017-03-02] MEDS ORDERED: TMPOPS15 (15:40)
[2017-03-02] MEDS: OXYCODONE HCL IR 5 MG TAB (IMMEDIATE RELEASE) PO STA (15:47)
[2017-03-02 15:49] LABS: BASO % 0.2 %; BASO ABS # 0.01 K/uL (0-0.2); COMPLETE YES; EOS % 1.5 %; HEMATOCRIT 40.6 % (37-47); IG% 0.2 %; LYMPH % 23.2 %; LYMPH ABS # 1.05 K/uL (1.2-3.4); MEAN CELL VOLUME 92.3 fL (80-100); MEAN CORPUSCULAR HEMOGLOBIN 30.2 pg (25-34); MEAN CORPUSCULAR HGB CONC 32.8 g/dl (32-36); MEAN PLATELET VOLUME 10.5 fL (7.4-10.4); MONO % 10.6 %; NEUT % 64.3 %; PLATELET COUNT 195 K/uL (130-400); WHITE BLOOD COUNT 4.53 K/uL (4.8-10.8)
[2017-03-02] MEDS ORDERED: DIPHTHERIA/TETANUS/PERTUSSIS 0.5 ML SYR/VIAL IM. ONE (16:00)
--- NOTE | 2017-03-02 16:04 | DIAGNOSTIC IMAGING REPORT ---
CT SCAN OF THE BRAIN WITHOUT IV CONTRAST CLINICAL HISTORY: Fall. Head injury. COMPARISON STUDY: No priors. TECHNIQUE: Unenhanced axial CT scan of the brain is performed from the vertex to the skull base. FINDINGS: Brain parenchyma: There are age-related involutional changes noting moderate patchy subcortical and periventricular microangiopathic change. There is no hemorrhage, mass effect, or evidence of acute territorial ischemia by CT criteria. Morrison-white matter is preserved. No extra-axial fluid collection is seen. Ventricles, sulci, cisterns: Prominent secondary to involutional change. Intracranial vasculature: There is atherosclerotic calcification of the cavernous carotid arteries. Calvarium: The skeletal structures are osteopenic. No depressed calvarial fracture is seen. Soft tissues: There is a large right periorbital and right frontal scalp hematoma. Sinuses and mastoids: There is blood within the right maxillary antrum. The remaining visualized paranasal sinuses are clear. The mastoid air cells are well pneumatized. Orbits: There is a right orbital floor fracture. The left bony orbit is Grossly intact. IMPRESSION: 1. Senescent changes as above with no hemorrhage, mass effect, or evidence of acute territorial ischemia by CT criteria. 2. Right periorbital and frontal scalp hematoma. No depressed calvarial fracture is seen. 3. There is a right orbital floor fracture. See report of facial bone CT performed concurrently for detailed facial bone findings. Electronically signed by: Martin Jorgensen M.D. 03/02/2017 4:02 PM Dictated Date/Time: 03/02/2017 4:00 PM
[2017-03-02 16:07] LABS: BUN/CREATININE RATIO 14.9 (10-20); CALCIUM 8.8 mg/dl (8.5-10.1); CREATININE 0.79 mg/dl (0.60-1.20); POTASSIUM 3.4 mmol/L (3.5-5.1)
[2017-03-02 16:10] LABS: ALB/GLOB RATIO 0.5 (0.9-2)
--- NOTE | 2017-03-02 16:18 | DIAGNOSTIC IMAGING REPORT ---
MAXILLOFACIAL CT WITHOUT CONTRAST CLINICAL HISTORY: Fall. Head/face injury COMPARISON STUDY: None. TECHNIQUE: A maxillofacial CT was performed without IV contrast. Coronal and sagittal reformats were viewed. FINDINGS: There is a moderately displaced right orbital floor fracture which involves the infraorbital foramen. The fracture is displaced 6 mm. The globes are intact. There is hemorrhage within the right maxillary sinus. There is herniation of fat through the defect. The globes are intact. No additional facial fractures are present. There is a preseptal right-sided contusion. The cervical spine will be reported separately. IMPRESSION: 1. Moderately displaced, comminuted right orbital floor fracture with herniation of orbital fat through the defect. 2. Right preseptal contusion. Globes intact. No significant retrobulbar hematoma. Electronically signed by: Flynn Yan M.D. 03/02/2017 4:17 PM Dictated Date/Time: 03/02/2017 4:12 PM
--- NOTE | 2017-03-02 16:20 | DIAGNOSTIC IMAGING REPORT ---
CT OF THE CERVICAL SPINE WITHOUT CONTRAST CLINICAL HISTORY: Fall. Head/face injury COMPARISON STUDY: No previous studies for comparison. TECHNIQUE: Helical axial images of the cervical spine were obtained without IV contrast. Sagittal and coronal reconstructions were viewed. FINDINGS: There is reversal of the normal cervical lordosis. There is mild anterolisthesis of C2 on C3 which is likely degenerative. Severe degenerative changes are noted the C1-C2 articulation. There is moderate to severe multilevel facet arthrosis and degenerative disc disease. There is no prevertebral edema. There is no acute fracture or suspicious lesion. IMPRESSION: 1. No acute cervical spine fracture or subluxation. 2. Moderate to severe multilevel degenerative disc disease and facet arthrosis. Electronically signed by: Flynn Yan M.D. 03/02/2017 4:19 PM Dictated Date/Time: 03/02/2017 4:17 PM
[2017-03-02] MEDS ORDERED: ONDANSETRON INJ 2 MG/ML 2 ML VIAL IV STA (16:54)
--- NOTE | 2017-03-02 16:55 | DIAGNOSTIC IMAGING REPORT ---
CHEST 2 VIEWS ROUTINE CLINICAL HISTORY: Fall. Right side rib pain under right breast. COMPARISON STUDY: Radiograph October 06, 2016. FINDINGS: Elevation of the right hemidiaphragm is unchanged. There is no pneumothorax or pleural effusion. Cardiomegaly is unchanged. There is no evidence of pulmonary edema. No rib fracture is identified although sensitivity is diminished given this technique. IMPRESSION: No acute cardiopulmonary findings. Electronically signed by: Flynn Yan M.D. 03/02/2017 4:53 PM Dictated Date/Time: 03/02/2017 4:52 PM
--- NOTE | 2017-03-02 16:57 | DIAGNOSTIC IMAGING REPORT ---
RIGHT RIBS UNILATERAL MIN 2 VIEWS CLINICAL HISTORY: Fall right-sided rib pain. COMPARISON STUDY: Chest radiograph October 06, 2016. FINDINGS: No acute right rib fractures are identified. There is elevation of the right hemidiaphragm which is unchanged. A calcified gallstone is noted. IMPRESSION: No acute right rib fractures. Electronically signed by: Flynn Yan M.D. 03/02/2017 4:56 PM Dictated Date/Time: 03/02/2017 4:54 PM
--- NOTE | 2017-03-02 16:58 | DIAGNOSTIC IMAGING REPORT ---
RIGHT TIBIA/FIBULA 2 VIEWS ROUTINE CLINICAL HISTORY: Right lower leg pain following fall. COMPARISON: None FINDINGS: No acute fracture of the right tibia or fibula is identified. There is minimal posterior calcaneal spurring. Alignment of the right ankle is anatomic IMPRESSION: No acute fracture of the right tibia or fibula. Electronically signed by: Flynn Yan M.D. 03/02/2017 4:57 PM Dictated Date/Time: 03/02/2017 4:56 PM
[2017-03-02 17:00] VITALS: PULSE 78
--- NOTE | 2017-03-02 17:12 | EMERGENCY ROOM VISIT NOTE ---
ED Visit Note First contact with patient: 15:17 This Patient was discussed with the physician Milieu Manager, Buck Chua PA-C. The pertinent historical and physical exam findings were confirmed. I agree with the studies ordered and with the interpretations of these studies. I agree with the disposition and care plan.
[2017-03-02] MEDS: CEFTRIAXONE SOD INJ 1 GM ADDVIAL IV STA ×2 (17:20→17:25)
[2017-03-02] MEDS ORDERED: OXYCODONE IR HOME PACK PO ONE (18:30)
[2017-03-02] MEDS ORDERED: ONDANSETRON HOME PACK 4MG OD TAB PO ONE (18:30)
[2017-03-02] MEDS ORDERED: CEFD300C2 PO (18:34)
[2017-03-02] MEDS ORDERED: OXYC1TAB3 PO (18:34)
[2017-03-02] MEDS ORDERED: ONDA4TAB10 SL (18:34)
[2017-03-02 19:03] VITALS: BP 150/81; O2SAT 94
--- NOTE | 2017-03-02 20:22 | EMERGENCY ROOM VISIT NOTE ---
History First contact with patient: 15:17 Chief Complaint: FALL Stated Complaint: FALL - RIB, LEGS, FACE, EYE, AND CHEST PAIN History of Present Illness The patient is a 81 year old female who presents to the Emergency Room with complaints of falling approximately 2 hours prior to arrival. Patient states that she was walking up a flight of concrete stairs outside, when she caught her foot on one of the steps, and fell forward onto the concrete. The patient primarily landed onto her right side. She is complaining of right-sided facial and head pain, as well as right rib and right lower leg pain. The patient was not able to immediately ambulate following the injury. She did not have lightheadedness, dizziness, chest pain, chest tightness, shortness of breath, or palpitations before or after the event. She did have one episode of bloody nose, followed by a few moments of a clearish/pinkish discharge. This has subsided prior to arrival. The patient does not take blood thinners. She has not had anything maqb-vho-calbnim for her pain which she currently rates a 7/ 10. Movement of her right leg or palpation of her right-sided chest wall does worsen her symptoms. Review of Systems More than 10 systems were reviewed and otherwise negative with the exception of history of present illness. Past Medical/Surgical History Medical Problems: (1) Autoimmune hepatitis (2) Diarrhea (3) new start tube feeding (4) Spinal stenosis Family History No pertinent family history Social History Smoking Status: Unknown if Ever Smoked Alcohol Use: none Drug Use: none Marital Status: Housing Status: lives with family Occupation Status: retired Current/Historical Medications Scheduled Azathioprine (Imuran), 150 MG PO DAILY @ NOON Cefdinir (Omnicef), 300 MG PO Q12H Glipizide (Glucotrol), 2.5 MG PO Q12 Levothyroxine Sodium (Synthroid), 175 MCG PO DAILYBB Multivitamin (Multivitamin), 1 TAB PO DAILY Nitroglycerin (Nitrostat), 0.4 MG UT PRN Ondasetron Odt (Zofran Odt), 4 MG SL Q6H Oxycodone Immediate Rel Tab (Roxicodone Ir), 1-2 TAB PO Q6 Verapamil Hcl (Calan), 120 MG PO TID Miscellaneous Medications Ifhznspn-Rjvqygvcjjze-Jetuhpkd (Artificial Tears), 1-2 DROPS OPB Timolol Maleate (Timolol 0.5% Oph Soln 15 Ml) Allergies Coded Allergies: Ciprofloxacin (Verified Allergy, Severe, SHORTNESS OF BREATH, 03/02/17) Morphine (Unverified Allergy, Unknown, ., 03/02/17) Penicillins (Verified Allergy, Unknown, 12/08/[address] ALLERGIES PER DR CLARK H&P, 03/02/17) Tramadol (Unverified Adverse Reaction, Unknown, hallucinations, 03/02/17) Physical Exam Vital Signs Date Time Temp Pulse Resp B/P Pulse Ox O2 Delivery O2 Flow Rate FiO2 03/02/17 19:03 150/81 94 Room Air 03/02/17 17:00 78 20 151/84 94 Room Air 03/02/17 15:07 36.9 78 20 157/82 93 Room Air Pain Rating (0-10): 5.0 Physical Exam VITALS: Vitals are noted on the nurse's note and reviewed by myself. Vital signs stable. GENERAL: Elderly appearing white female who appears mildly uncomfortable secondary to her stated complaint. She is resting in her emergency department bed. HEAD: Ecchymosis and edema appreciated around the right thigh and right-sided face. No walker sign or raccoon eyes. EARS: External ear normal. External auditory canals clear, tympanic membranes pearly morrison without erythema or effusion bilaterally. No hemotympanum EYES: Pupils equal round and reactive to light and accommodation. Conjunctivae without injection, sclerae without icterus. Extraocular movements intact. No hyphema NOSE: Patent, turbinates without inflammation or discharge. No epistaxis or clear drainage appreciated. MOUTH: Mucous membranes moist. Tonsils are not enlarged. Pharynx without erythema, blood, or exudate. Uvula midline. Airway patent. NECK: Supple without nuchal rigidity. No lymphadenopathy. No thyromegaly. Cervical spine is nontender. HEART: Regular rate and rhythm without murmurs gallops or rubs. LUNGS: Clear to auscultation bilaterally without wheezes, rales or rhonchi. No retractions or accessory muscle use. CHEST WALL: Positive tenderness along the right-sided chest wall through the eighth to 10th rib distribution laterally and anteriorly. No significant deformity or flail chest noted. ABDOMEN: Positive normal bowel sounds x 4. Soft, nontender, without masses or organomegaly. No guarding or rebound tenderness. MUSCULOSKELETAL: No muscle atrophy, erythema, or edema noted. No tenderness of the spine or SI joint. No hip tenderness. No tenderness with pelvic rocking. No tenderness of the bilateral knees or ankles. There is tenderness of the posterior right leg. Range of motion to the right lower extremity is full with 5/5 strength. Compression of the right gastroc does cause light reflection of the foot on the right. Neurovascular status is intact. NEURO: Patient was alert and oriented to person place and time. CN II through XII grossly intact. Deep tendon reflexes 2+ throughout. No focal neurological deficits SKIN: The skin was with a superficial abrasion to the right hand. Medical Decision & Procedures ER Provider Diagnostic Interpretation: CT SCAN OF THE BRAIN WITHOUT IV CONTRAST CLINICAL HISTORY: Fall. Head injury. COMPARISON STUDY: No priors. TECHNIQUE: Unenhanced axial CT scan of the brain is performed from the vertex to the skull base. FINDINGS: Brain parenchyma: There are age-related involutional changes noting moderate patchy subcortical and periventricular microangiopathic change. There is no hemorrhage, mass effect, or evidence of acute territorial ischemia by CT criteria. Morrison-white matter is preserved. No extra-axial fluid collection is seen. Ventricles, sulci, cisterns: Prominent secondary to involutional change. Intracranial vasculature: There is atherosclerotic calcification of the cavernous carotid arteries. Calvarium: The skeletal structures are osteopenic. No depressed calvarial fracture is seen. Soft tissues: There is a large right periorbital and right frontal scalp hematoma. Sinuses and mastoids: There is blood within the right maxillary antrum. The remaining visualized paranasal sinuses are clear. The mastoid air cells are well pneumatized. Orbits: There is a right orbital floor fracture. The left bony orbit is Grossly intact. IMPRESSION: 1. Senescent changes as above with no hemorrhage, mass effect, or evidence of acute territorial ischemia by CT criteria. 2. Right periorbital and frontal scalp hematoma. No depressed calvarial fracture is seen. 3. There is a right orbital floor fracture. See report of facial bone CT performed concurrently for detailed facial bone findings. MAXILLOFACIAL CT WITHOUT CONTRAST CLINICAL HISTORY: Fall. Head/face injury COMPARISON STUDY: None. TECHNIQUE: A maxillofacial CT was performed without IV contrast. Coronal and sagittal reformats were viewed. FINDINGS: There is a moderately displaced right orbital floor fracture which involves the infraorbital foramen. The fracture is displaced 6 mm. The globes are intact. There is hemorrhage within the right maxillary sinus. There is herniation of fat through the defect. The globes are intact. No additional facial fractures are present. There is a preseptal right-sided contusion. The cervical spine will be reported separately. IMPRESSION: 1. Moderately displaced, comminuted right orbital floor fracture with herniation of orbital fat through the defect. 2. Right preseptal contusion. Globes intact. No significant retrobulbar hematoma. CT OF THE CERVICAL SPINE WITHOUT CONTRAST CLINICAL HISTORY: Fall. Head/face injury COMPARISON STUDY: No previous studies for comparison. TECHNIQUE: Helical axial images of the cervical spine were obtained without IV contrast. Sagittal and coronal reconstructions were viewed. FINDINGS: There is reversal of the normal cervical lordosis. There is mild anterolisthesis of C2 on C3 which is likely degenerative. Severe degenerative changes are noted the C1-C2 articulation. There is moderate to severe multilevel facet arthrosis and degenerative disc disease. There is no prevertebral edema. There is no acute fracture or suspicious lesion. IMPRESSION: 1. No acute cervical spine fracture or subluxation. 2. Moderate to severe multilevel degenerative disc disease and facet arthrosis. CHEST 2 VIEWS ROUTINE CLINICAL HISTORY: Fall. Right side rib pain under right breast. COMPARISON STUDY: Radiograph October 06, 2016. FINDINGS: Elevation of the right hemidiaphragm is unchanged. There is no pneumothorax or pleural effusion. Cardiomegaly is unchanged. There is no evidence of pulmonary edema. No rib fracture is identified although sensitivity is diminished given this technique. IMPRESSION: No acute cardiopulmonary findings. RIGHT RIBS UNILATERAL MIN 2 VIEWS CLINICAL HISTORY: Fall right-sided rib pain. COMPARISON STUDY: Chest radiograph October 06, 2016. FINDINGS: No acute right rib fractures are identified. There is elevation of the right hemidiaphragm which is unchanged. A calcified gallstone is noted. IMPRESSION: No acute right rib fractures. RIGHT TIBIA/FIBULA 2 VIEWS ROUTINE CLINICAL HISTORY: Right lower leg pain following fall. COMPARISON: None FINDINGS: No acute fracture of the right tibia or fibula is identified. There is minimal posterior calcaneal spurring. Alignment of the right ankle is anatomic IMPRESSION: No acute fracture of the right tibia or fibula. Laboratory Results 03/02/17 15:35 Red Blood Count 4.40, Mean Corpuscular Volume 92.3, Mean Corpuscular Hemoglobin 30.2, Mean Corpuscular Hemoglobin Concent 32.8, Mean Platelet Volume 10.5, Neutrophils (%) (Auto) 64.3, Lymphocytes (%) (Auto) 23.2, Monocytes (%) (Auto) 10.6, Eosinophils (%) (Auto) 1.5, Basophils (%) (Auto) 0.2, Neutrophils # (Auto ) 2.91, Lymphocytes # (Auto) 1.05, Monocytes # (Auto) 0.48, Eosinophils # (Auto ) 0.07, Basophils # (Auto) 0.01 03/02/17 15:35 Test 03/02/17 15:35 White Blood Count 4.53 K/uL (4.8-10.8) Red Blood Count 4.40 M/uL (4.2-5.4) Hemoglobin 13.3 g/dL (12.0-16.0) Hematocrit 40.6 % (37-47) Mean Corpuscular Volume 92.3 fL (80-100) Mean Corpuscular Hemoglobin 30.2 pg (25-34) Mean Corpuscular Hemoglobin Concent 32.8 g/dl (32-36) Platelet Count 195 K/uL (130-400) Mean Platelet Volume 10.5 fL (7.4-10.4) Neutrophils (%) (Auto) 64.3 % Lymphocytes (%) (Auto) 23.2 % Monocytes (%) (Auto) 10.6 % Eosinophils (%) (Auto) 1.5 % Basophils (%) (Auto) 0.2 % Neutrophils # (Auto) 2.91 K/uL (1.4-6.5) Lymphocytes # (Auto) 1.05 K/uL (1.2-3.4) Monocytes # (Auto) 0.48 K/uL (0.11-0.59) Eosinophils # (Auto) 0.07 K/uL (0-0.5) Basophils # (Auto) 0.01 K/uL (0-0.2) RDW Standard Deviation 46.4 fL (36.4-46.3) RDW Coefficient of Variation 13.8 % (11.5-14.5) Immature Granulocyte % (Auto) 0.2 % Immature Granulocyte # (Auto) 0.01 K/uL (0.00-0.02) Prothrombin Time 11.0 SECONDS (9.0-12.0) Prothromb Time International Ratio 1.0 (0.9-1.1) Activated Partial Thromboplast Time 25.9 SECONDS (21.0-31.0) Partial Thromboplastin Ratio 1.0 Anion Gap 7.0 mmol/L (3-11) Est Creatinine Clear Calc Drug Dose 57.3 ml/min Estimated GFR () 81.9 Estimated GFR (Non- 70.7 BUN/Creatinine Ratio 14.9 (10-20) Calcium Level 8.8 mg/dl (8.5-10.1) Total Bilirubin 0.5 mg/dl (0.2-1) Aspartate Amino Transf (AST/SGOT) 29 U/L (15-37) Alanine Aminotransferase (ALT/SGPT) 26 U/L (12-78) Alkaline Phosphatase 43 U/L (45-117) Total Protein 10.3 gm/dl (6.4-8.2) Albumin 3.4 gm/dl (3.4-5.0) Globulin 6.9 gm/dl (2.5-4.0) Albumin/Globulin Ratio 0.5 (0.9-2) Medications Administered Medications (Trade) Dose Ordered Sig/Catrachito Route Start Time Stop Time Status Last Admin Dose Admin Oxycodone HCl (Roxicodone Immediate Rel Tab) 5 mg NOW STAT PO 03/02/17 15:26 03/02/17 15:29 DC 03/02/17 15:47 5 MG Diphtheria/ Pertussis/Tetanus Vacc (Adacel Inj) 0.5 ml ONCE ONCE IM. 03/02/17 16:00 03/02/17 16:01 DC 03/02/17 16:14 0.5 ML Ondansetron HCl (Zofran Inj) 4 mg NOW STAT IV 03/02/17 16:54 03/02/17 16:55 DC 03/02/17 17:01 4 MG Ceftriaxone Sodium (Rocephin Inj) 1 gm NOW STAT IV 03/02/17 17:08 03/02/17 17:09 DC 03/02/17 17:25 1 GM Oxycodone HCl (Roxicodone Immediate Rel 5MG Home Pack) 1 homepack UD ONCE PO 03/02/17 18:30 03/02/17 18:31 DC 03/02/17 18:54 1 HOMEPACK Ondansetron HCl (ZOFRAN ODT 4MG Home Pack) 1 homepack UD ONCE PO 03/02/17 18:30 03/02/17 18:31 DC 03/02/17 18:54 1 HOMEPACK ED Course Physical exam and history were performed. Nursing notes and EMR were reviewed. Patient appears to have multiple injuries after falling approximately 2 hours ago. IV access was established and labs were obtained. EKG was normal sinus rhythm at 70 bpm. EKG is essentially unchanged from EKG 10/06/2016. CT scans of the head, neck, and face were ordered. Multiple plain films were also performed. The patient is very sensitive to narcotics, but states that she has taken OxyIR in the past. She was given 5 mg by mouth. The patient's blood work is as above and was reviewed. She does not have a significantly elevated white blood cell count, gross anemia, bandemia, or significant electrolyte imbalance. Lipase and transaminases are nondiagnostic. Troponin 1 is negative. The patient's x-rays of the chest, ribs, and leg do not show significant acute findings. CT scans do show a displaced right orbital floor fracture, which clinically would correlate with her injury and presentation. The case was discussed with my attending physician, Dr. Schaefer, who also independently evaluated the patient. The patient is allergic to penicillins and was given 1 g Rocephin IV. The case was also discussed with the oral maxillofacial surgeon, Dr. Pena, who recommended continued antibiotics and follow-up next week for further care and management. On repeat examination the patient did have some worsening swelling of the face, but she continued remained in stable condition. She was instructed to not blow her nose as this can exacerbate her symptoms. Additionally she was asked to monitor for return of clear sinus drainage. I do not suspect a CSF leak as this has not persisted in any meaningful fashion. The patient also appears to have injured her right lower leg and I will provide her a walker to assist with ambulation. Regarding her right side chest wall pain, she will be given an incentive spirometer. Overall the patient appears well for discharge home. She was invited back to the emergency department with any new, worsening, or concerning symptoms. She voiced understanding and rated her discomfort a 3/10 at the time of departure. She was discharged home under the care of her daughter who is acting as the semi truck driver today. The chart was completed utilizing [employer] Speech Voice Recognition Software. Grammatical errors, random word insertions, pronoun errors, and incomplete sentences are an occasional consequence of this system due to software limitations, ambient noise, and hardware issues. Any formal questions or concerns about the content, text, or information contained within the body of this dictation should be directly addressed to the provider for clarification. . Medical Decision Differential diagnosis: Etiologies such as fracture, dislocation, intra-abdominal, pneumothorax, intrathoracic , intracranial, neurologic, as well as other traumatic pathologies were entertained. Impression Primary Impression: Fall Additional Impressions: Soft tissue injury of right chest wall Fracture of right orbital floor Injury of right lower leg Departure Information Dispostion Home / Self-Care Condition GOOD Prescriptions Ondasetron Odt (ZOFRAN ODT) 4 Mg Tab 4 MG SL Q6H for Nausea, #12 TAB Prov: Buck Chua PA-C 03/02/17 Oxycodone Immediate Rel Tab (ROXICODONE IR) 5 Mg Tab 1-2 TAB PO Q6 for Pain, #24 TAB For initial therapy Prov: Buck Chua PA-C 03/02/17 Cefdinir (OMNICEF) 300 Mg Cap 300 MG PO Q12H for 10 Days, #20 CAP Prov: Buck Chua PA-C 03/02/17 Referrals Manoj Pena D.D.S. Forms HOME CARE DOCUMENTATION FORM, IMPORTANT VISIT INFORMATION Patient Instructions My [facility] Additional Instructions You were seen and evaluated today on an emergency basis only. This is not a substitute for, or an effort to provide, complete comprehensive medical care. It is not possible to recognize and treat all injuries or illnesses in a single emergency department visit. For this reason it is recommended that you followup with the oral maxillofacial surgeon, Dr. Pena, next week for ongoing care. Please call their office Sunday to make her appointment. We also recommended you follow with your primary care physician next week Oxycodone (OxyIR) 5mg: Take ONE pill every SIX hours for breakthrough pain. Avoid alcohol, operating machinery or dangerous equipment, working on ladders or roofs, DRIVING, or situations where being under the influence may be dangerous. It is recommended to use an aala-ygs-vuukedv stool softener such as Colace, 100mg twice daily while taking this medication to avoid constipation. Zofran 1 tablet every 6 hrs as needed for nausea. Take Omnicef 300 mg twice daily for the next 10 days. Do not blow your nose If you have return of persistent clear or pink drainage from ear nose please seek additional medical care Use your incentive spirometer 6-8 times per hour to help prevent pneumonia Use you walker at all times to prevent falls You are welcome to return to the emergency department anytime with new, worsening, or concerning symptoms. Problem Qualifiers Primary Impression: Fall Encounter type: initial encounter Qualified Codes: W19.XXXA - Unspecified fall, initial encounter Additional Impressions: Fracture of right orbital floor Encounter type: initial encounter Fracture type: closed Qualified Codes: S02.31XA - Fracture of orbital floor, right side, initial encounter for closed fracture Injury of right lower leg Encounter type: initial encounter Qualified Codes: S89.91XA - Unspecified injury of right lower leg, initial encounter
== END 2017-03-02 19:05 | disposition home or self-care (01) ==
LOC: C.EDB 14:48 → C.EDD 19:05
DX: S29.9XXA Unspecified injury of thorax, initial encounter (principal); S02.31XA Fracture of orbital floor, right side, initial encounter for closed fracture; S89.91XA Unspecified injury of right lower leg, initial encounter; Z23 Encounter for immunization; Z79.899 Other long term (current) drug therapy; W10.9XXA Fall (on) (from) unspecified stairs and steps, initial encounter

== ENCOUNTER → 2017-03-16 | Outpatient (CLI) | payer OTHER ==
[~2017-03-16] MED LIST changes: -ARTISOL8 OPB; +GLYCDRO6 OPB; +ONDA4TAB10 SL; +TMPOPS15
--- NOTE | 2017-03-16 17:29 | DIAGNOSTIC IMAGING REPORT ---
ULTRASOUND VENOUS DOPPLER ULTRASOUND OF THE RIGHT LOWER EXTREMITY CLINICAL HISTORY: RT LEG SWELLING COMPARISON STUDY: November 2011 FINDINGS: Real-time and color flow Doppler imaging were performed. Flow was seen within the femoral, popliteal and deep calf veins with no intraluminal thrombus demonstrated. The saphenous vein is patent. There is a superficial thrombus present within the right popliteal fossa, possibly a sural venous branch. There is a complex fluid collection within the right mid posterior calf measuring 57 x 85 x 12 mm. This likely represents a hematoma given history of trauma. IMPRESSION: 1. No evidence of right lower extremity DVT 2. Thrombosed superficial vein within the right popliteal fossa 3. 57 x 85 x 12 mm complex fluid collection within the right posterior calf, likely representing a hematoma Electronically signed by: Last Duque M.D. 03/16/2017 5:28 PM Dictated Date/Time: 03/16/2017 5:25 PM
== END | disposition home or self-care (01) ==
LOC: C.ULTR 16:44
PROVIDERS: ATTEND Internal Medicine
DX: M79.89 Other specified soft tissue disorders (principal); I82.811 Embolism and thrombosis of superficial veins of right lower extremity; R93.7 Abnormal findings on diagnostic imaging of other parts of musculoskeletal system

== ENCOUNTER → 2017-07-16 | Outpatient (CLI) | payer OTHER ==
--- NOTE | 2017-07-16 14:15 | MAMMOGRAPHY REPORT ---
BILATERAL DIGITAL SCREENING MAMMOGRAM WITH CAD: 07/16/2017 CLINICAL HISTORY: Routine screening. Patient has no complaints. TECHNIQUE: Bilateral CC and MLO views were obtained. Current study was also evaluated with a Compute r Aided Detection (CAD) system. COMPARISON: Comparison is made to exams dated: 07/13/2016 mammogram, 07/07/2015 mammogram, 07/01/2014 m ammogram, 06/30/2013 mammogram, 06/27/2012 mammogram, and 06/26/2011 mammogram - [facility] enter. BREAST COMPOSITION: There are scattered areas of fibroglandular density in both breasts. FINDINGS: There are scattered benign rim calcifications and mild vascular calcifications in the breas ts. No suspicious mass, architectural distortion or cluster of suspicious microcalcifications is see n. IMPRESSION: ACR BI-RADS CATEGORY 1: NEGATIVE There is no mammographic evidence of malignancy. A 1 year screening mammogram is recommended. The pa tient will receive written notification of the results. Approximately 10% of breast cancers are not detected with mammography. A negative mammographic report should not delay biopsy if a clinically suggestive mass is present. Evangelina Cleary M.D. ay/:07/16/2017 10:50:08 Electrotyper Helper: Mariana RAZO(R)(M), [facility] letter sent: Normal 1/2 BI-RADS Code: ACR BI-RADS Category 1: Negative
== END | disposition home or self-care (01) ==
LOC: C.MAMM 10:06
PROVIDERS: ATTEND Obstetrics & Gynecology
DX: Z12.31 Encounter for screening mammogram for malignant neoplasm of breast (principal)

== ENCOUNTER 2017-10-13 21:28 | Emergency (ER) | payer OTHER ==
[~2017-10-13] VITALS: Ht 158.8 cm; Wt 87.2 kg
[~2017-10-13 21:28] MED LIST changes: -ONDA4TAB10 SL; -OXYC1TAB3 PO
[2017-10-13 21:33] VITALS: TEMP 36.4; Ht 158.8 cm; Wt 87.2 kg
[2017-10-13] MEDS ORDERED: OXYMETAZOLINE HCL 0.05% NA SPR 15 ML BTL ONE (21:48)
[2017-10-13 22:55] VITALS: BP 172/73; PULSE 84; O2SAT 95
[2017-10-13] MEDS ORDERED: AMOX875T3 PO (23:09)
[2017-10-13] MEDS ORDERED: AMOXICIL/CLAVU 875MG HOME PACK PO ONE (23:15)
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
== END 2017-10-13 23:23 | disposition home or self-care (01) ==
LOC: C.EDB 21:29 → C.EDD 23:23
DX: R04.0 Epistaxis (principal); Z91.81 History of falling; Z87.81 Personal history of (healed) traumatic fracture; E11.9 Type 2 diabetes mellitus without complications; I10 Essential (primary) hypertension; J45.909 Unspecified asthma, uncomplicated; H40.9 Unspecified glaucoma; G70.00 Myasthenia gravis without (acute) exacerbation; Z79.84 Long term (current) use of oral hypoglycemic drugs

== ENCOUNTER 2017-10-15 09:23 | Emergency (ER) | payer OTHER ==
[~2017-10-15] VITALS: Ht 157.5 cm; Wt 86.0 kg
[~2017-10-15 09:23] MED LIST changes: +AMOX875T3 PO; -TMPOPS15; +TMPOPS15 OPB
[2017-10-15 09:38] VITALS: TEMP 36.4; Ht 157.5 cm; Wt 86.0 kg
[2017-10-15] MEDS ORDERED: AZAT50TA17 PO (10:06)
[2017-10-15] MEDS ORDERED: VERA120T15 PO (10:06)
[2017-10-15] MEDS ORDERED: AMOX875T3 PO (10:06)
[2017-10-15] MEDS ORDERED: LEVO175T PO (10:06)
--- NOTE | 2017-10-15 11:47 | DIAGNOSTIC IMAGING REPORT ---
HEAD WITHOUT CONTRAST (CT) CT DOSE: 537.48 mGy.cm HISTORY: Mental status change intermittent dizzy TECHNIQUE: Multiaxial CT images of the head were performed without the use of intravenous contrast. A dose lowering technique was utilized adhering to the principles of ALARA. Comparison: 03/02/2017 Findings: Minimal mucosal thickening of the sinuses. The calvarium and skull base are intact. The ventricles and sulci are within normal limits. There is no mass, hematoma, midline shift, or acute infarct. Mild age-related chronic small vessel change Impression: No acute intracranial abnormality. Age-related change. The above report was generated using voice recognition software. It may contain grammatical, syntax or spelling errors. Electronically signed by: Chester Colmenares M.D. 10/15/2017 11:45 AM Dictated Date/Time: 10/15/2017 11:44 AM
[2017-10-15 12:15] VITALS: BP 178/88; PULSE 75; O2SAT 95
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
[2017-10-18] MEDS ORDERED: CALC500C70 PO (14:31)
[2017-10-18] MEDS ORDERED: PRLSR20 PO (14:31)
[2017-10-18] MEDS ORDERED: CYAN10005 PO (14:31)
[2017-10-18] MEDS ORDERED: MILKPOW PO (14:31)
[2017-10-18] MEDS ORDERED: POTA10CA28 PO (14:31)
[2017-10-18] MEDS ORDERED: PYRI100T4 PO (14:31)
[2017-10-18] MEDS ORDERED: ivig IV (14:51)
== END 2017-10-15 12:18 | disposition home or self-care (01) ==
LOC: C.EDB 09:23
DX: R42 Dizziness and giddiness (principal); K75.4 Autoimmune hepatitis; M48.00 Spinal stenosis, site unspecified; Z79.84 Long term (current) use of oral hypoglycemic drugs

== ENCOUNTER 2017-10-19 09:05 | Day surgery (SDC) | payer OTHER ==
--- NOTE | 2017-10-18 10:05 | History and Physical ---
History & Physical Date Oct 18, 2017. Chief Complaint nose bleeds History of Present Illness The patient is a 82 year old female with complaints of persistent epistaxis Past Medical/Surgical History Medical Problems: (1) Autoimmune hepatitis (2) Diarrhea (3) new start tube feeding (4) Spinal stenosis Allergies Coded Allergies: Ciprofloxacin (Verified Allergy, Severe, SHORTNESS OF BREATH, 10/15/17) Morphine (Unverified Allergy, Unknown, ., 10/15/17) Penicillins (Verified Allergy, Unknown, 12/08/[address] ALLERGIES PER DR CLARK H&P, 10/15/17) Tramadol (Unverified Adverse Reaction, Unknown, hallucinations, 10/15/17) Home Medications Scheduled Amoxicillin (Amoxil), 875 MG PO BID Azathioprine (Imuran), 150 MG PO DAILY Glipizide (Glucotrol), 2.5 MG PO Q12 Levothyroxine Sodium (Synthroid), 175 MCG PO DAILY Multivitamin (Multivitamin), 1 TAB PO DAILY Nitroglycerin (Nitrostat), 0.4 MG UT PRN Verapamil (Calan), 120 MG PO TID Miscellaneous Medications Umodvzme-Qmaafuuvczxl-Komusgtb (Artificial Tears), 1-2 DROPS OPB Timolol Maleate (Timolol 0.5% Oph Soln 15 Ml) Physical Examination Skin: warm/dry, no rash Eyes: normal inspection, EOMI, sclerae normal ENT: normal ENT inspection, pharynx normal Head: normocephalic, atraumatic Neck: supple, no adenopathy, trachea midline Respiratory/Chest: lungs clear, normal breath sounds, no respiratory distress Cardiovascular: regular rate, rhythm, no edema, no murmur Abdomen / GI: normal bowel sounds, non tender Back: normal inspection Extremities: normal inspection, normal range of motion Neurologic/Psych: no motor/sensory deficits, alert, normal reflexes, oriented x 3 Diagnosis epistaxis Plan of Treatment endoscopic cautery
[2017-10-18 14:32] VITALS: BMI 34.0
[~2017-10-19] VITALS: Ht 157.5 cm; Wt 86.0 kg
[~2017-10-19 09:05] MED LIST changes: -AMOX875T3 PO; +CALC500C70 PO; +CYAN10005 PO; +LACTATED RINGER'S 1000ML 1,000 ML IV SCH; +LEVO175T PO; +MILKPOW PO; +POTA10CA28 PO; +PRLSR20 PO; +PYRI100T4 PO; -SYN175 PO; +TETRACAINE 4% TOPICAL SOLUTION TOP SCH; +VERA120T15 PO; -VERA120T5 PO; +ivig IV
[2017-10-19 09:48] VITALS: BP 151/58; PULSE 71; TEMP 36.7; O2SAT 97; Ht 157.5 cm; Wt 86.0 kg
[2017-10-19] MEDS ORDERED: ATROPINE SULFATE 0.1 MG/ML 5ML SYR IV PRN (11:00)
[2017-10-19] MEDS ORDERED: EpHEDrine SULFATE INJ 50 MG/ML AMP IV PRN (11:00)
[2017-10-19] MEDS ORDERED: MIDAZOLAM HCL 1 MG/ML 2ML VIAL ONE (11:10)
--- NOTE | 2017-10-19 11:10 | History & Physical Bridge Note ---
H&P Re-Evaluation Bridge Note: I have examined the patient, reviewed the History & Physical and in the interval since the performance of the History & Physical I have noted the following changes of clinical significance: No changes noted
[2017-10-19] MEDS ORDERED: GELATIN SPONGE SZ 100 ONE (11:11)
[2017-10-19] MEDS ORDERED: MUPIROCIN 2% OINT 22 GM TUBE ONE (11:13)
[2017-10-19] MEDS ORDERED: LIDOCAINE 2%/EPINEPHRINE 1:100,000 1.8 ML CARTRIDGE ONE (11:36)
--- NOTE | 2017-10-19 11:53 | Discharge Instructions-SurgCtr ---
Discharge Instructions Date of Service Oct 19, 2017. Visit Reason for Visit: Epistaxis Discharge Discharge Diagnosis / Problem: same Discharge Goals Goal(s): Therapeutic intervention Activity Recommendations Activity Limitations: per Instructions/Follow-up section Anesthesia . Post Anesthesia Instructions: If you have had General Anesthesia or IV Sedation: * Do not drive today. * Resume driving when surgeon permits. * Do not make important decisions or sign legal documents today. * Call surgeon for: 1. Temperature elevations greater than 101 degrees F. 2. Uncontrollable pain. 3. Excessive bleeding. 4. Persistent nausea and vomiting. 5. Medication intolerance (nausea, vomiting or rash). * For nausea and vomiting use only clear liquids such as: tea, soda, bouillon until nausea subsides, then gradually increase diet as tolerated. * If you have any concerns or questions, call your surgeon's office. If physician is unavailable and it is an emergency, call 911 or go to the nearest emergency room. . Instructions / Follow-Up Instructions / Follow-Up ACTIVITY RECOMMENDATIONS: * Being up and around is good, but no strenuous activity, heavy lifting or physical exertion for one week. * Keep your head elevated 30 degrees when lying down or sleeping. * Do not blow your nose for 48 hours, sniff back instead. * Avoid hot showers. OVER THE COUNTER MEDICATIONS: * You may use Tylenol * Avoid aspirin or aspirin containing products, e.g. as they may increase bleeding. SPECIAL CARE INSTRUCTIONS: * Expect to have bloody drainage from your nose and/or down your throat for one to three days. Change drip pad as needed. * You may experience nasal and facial congestion, pain and pressure, this is normal. * Please call with any significant and/or progressive pain, redness, swelling around the eyes, visual changes, fever of 101.5 degrees F, active bleeding or any problems or concerns. * If active bleeding occurs, spray the nose three times at one minute intervals with Afrin spray and call or cell phone: . If unable to reach the doctor, go to the nearest Emergency Department. Special Diet: * Avoid extremely hot fluids. FOLLOW UP VISIT: Follow-up Visit with Dr. Herrera If not already scheduled, please call to schedule. Diet Recommendations Home Diet: resume previous diet Pending Studies Studies pending at discharge: no Medical Emergencies . Who to Call and When: Medical Emergencies: If at any time you feel your situation is an emergency, please call 911 immediately. . Non-Emergent Contact Non-Emergency issues call your: Primary Care Provider . . "Provider Documentation" section prepared by Paulette Herrera. . [place] Drug Monitoring Program Search Results: no issues identified
[2017-10-19] MEDS ORDERED: LIDO 2%/EPINEPHRINE 1:100000 20 ML VIAL INFIL ONE (12:05)
[2017-10-19 12:26] VITALS: BP 136/75; PULSE 73; TEMP 36.5; O2SAT 97
[2017-10-19 12:56] VITALS: BP 131/63; PULSE 70; TEMP 36.5; O2SAT 98
--- NOTE | 2017-10-19 13:02 | Anesthesiology Progress Note ---
Anesthesia Post Op Note Date & Time Oct 19, 2017 at 13:02 Vital Signs Pain Intensity: 2 Vital Signs Past 12 Hours Date Time Temp Pulse Resp B/P (MAP) Pulse Ox O2 Delivery O2 Flow Rate FiO2 10/19/17 12:56 36.5 70 20 131/63 98 Room Air 10/19/17 12:26 36.5 73 20 136/75 97 Room Air 10/19/17 09:48 36.7 71 18 151/58 (89) 97 Room Air Notes Mental Status: alert / awake / arousable, participated in evaluation Nausea / Vomiting: adequately controlled Pain: adequately controlled Airway Patency, RR, SpO2: stable & adequate BP & HR: stable & adequate Hydration State: stable & adequate Anesthetic Complications: no major complications apparent
--- NOTE | 2017-10-22 10:08 | OPERATIVE REPORT ---
DATE OF OPERATION: 10/19/2017 PREOPERATIVE DIAGNOSIS: Epistaxis. POSTOPERATIVE DIAGNOSIS: Same. PROCEDURE: Endoscopic cautery. ANESTHESIA: Strict local. COMPLICATIONS: None. BLOOD LOSS: Minimal. HISTORY: An 82-year-old lady with recurrent epistaxis with granuloma of the left side of the septum. She has been to [facility] and also been to [facility] for multiple cauteries. DESCRIPTION OF PROCEDURE: The patient brought to the operating room and placed in supine position and draped in the usual sterile manner. The nose was anesthetized using topical tetracaine and also using the injection 2% Xylocaine with 1:100,000 strength epinephrine. The bleeding site was identified at the mid septum and cauterized using the suction cautery with good control. The left nostril was packed with a single piece of Gelfoam coated with bacitracin ointment. The patient tolerated the procedure well and was taken to recovery area in satisfactory condition. I attest to the content of the Intraoperative Record and any orders documented therein. Any exception s are noted below.
== END 2017-10-19 12:58 | disposition home or self-care (01) ==
LOC: C.ACU 09:05
PROVIDERS: ATTEND Otolaryngology
DX: R04.0 Epistaxis (principal); J45.909 Unspecified asthma, uncomplicated; E11.9 Type 2 diabetes mellitus without complications; M35.00 Sjogren syndrome, unspecified; Z79.899 Other long term (current) drug therapy; M19.90 Unspecified osteoarthritis, unspecified site; E66.9 Obesity, unspecified; Z68.34 Body mass index [BMI] 34.0-34.9, adult; Z88.5 Allergy status to narcotic agent; Z88.2 Allergy status to sulfonamides; Z88.1 Allergy status to other antibiotic agents; Z88.0 Allergy status to penicillin

== ENCOUNTER → 2018-01-15 | Outpatient (CLI) | payer OTHER ==
[~2018-01-15] MED LIST changes: -LACTATED RINGER'S 1000ML 1,000 ML IV SCH; +OPTIRAY 320 IV PRN; -TETRACAINE 4% TOPICAL SOLUTION TOP SCH
--- NOTE | 2018-01-15 07:53 | DIAGNOSTIC IMAGING REPORT ---
CT OF THE ABDOMEN AND PELVIS WITH CONTRAST CLINICAL HISTORY: Left lower quadrant abdominal pain. COMPARISON STUDY: CT of the abdomen and pelvis July 27, 2015. TECHNIQUE: Following IV administration of 93 mL of Optiray-320, axial images of the abdomen and pelvis were obtained from the lung bases to the proximal femurs. Images were reviewed in the axial, sagittal, and coronal planes. IV contrast was administered without complication. A dose lowering technique was utilized adhering to the principles of ALARA. Oral contrast was administered. CT DOSE: 766.52 mGy.cm FINDINGS: Visualized portions of the lower chest demonstrate mild multifocal irregular airspace opacities within the right middle lobe which measure up to 1.5 cm. These are partially imaged on this exam. The heart is mildly enlarged. No pneumatosis, free air or portal venous gas is present. The liver, spleen, adrenal glands are unremarkable. There is a 3 mm calculus within the lower pole of the left kidney. There is no hydronephrosis. There are no ureteral calculi. Note is made of a 1.5 cm cyst arising from the lower pole the right kidney. There is no biliary or pancreatic ductal dilatation. There is a large gallstone within the gallbladder. There is mild gallbladder wall calcification. There is no pericholecystic infiltration. Appendix is normal. There is no evidence for a bowel obstruction. Severe sigmoid diverticulosis is noted without evidence for acute diverticulitis. There is no lymphadenopathy. There are no suspicious osseous lesions. The uterus is absent. IMPRESSION: 1. No acute process within the abdomen or pelvis. 2. Extensive sigmoid diverticulosis without evidence for acute diverticulitis. 3. Cholelithiasis with mild gallbladder wall calcification. No pericholecystic infiltration. 4. Mild multifocal airspace opacities within the right middle lobe which suggest a mild infectious process. A follow-up chest CT in one month to ensure resolution is recommended. 5. 3 mm left renal calculus. No ureteral calculi or hydronephrosis. Electronically signed by: Flynn Yan M.D. 01/15/2018 7:51 AM Dictated Date/Time: 01/15/2018 7:38 AM
== END | disposition home or self-care (01) ==
LOC: C.CTS 07:04
PROVIDERS: ATTEND Physician Assistant
DX: K57.30 Diverticulosis of large intestine without perforation or abscess without bleeding (principal); K80.20 Calculus of gallbladder without cholecystitis without obstruction; N20.0 Calculus of kidney

== ENCOUNTER → 2018-01-28 | Outpatient (CLI) | payer OTHER ==
[~2018-01-28] MED LIST changes: -OPTIRAY 320 IV PRN
[2018-01-28 12:57] LABS: HEMOGLOBIN A1C 6.2 % (4.5-5.6)
--- NOTE | 2018-01-28 14:02 | DIAGNOSTIC IMAGING REPORT ---
(CHEST) THORAX WITHOUT CT DOSE: 531.28 mGycm HISTORY: Nodules PULMONARY NODULES TECHNIQUE: Multiaxial CT images of the chest were performed without contrast. A dose lowering technique was utilized adhering to the principles of ALARA. COMPARISON: CT abdomen 01/15/2018. CT chest 02/15/2012 FINDINGS: 4 mm nodule right pulmonary apex unchanged from the study of 2012. There are moderate multifocal parenchymal densities in the right middle lobe region. A 9 mm somewhat nodular appearing density is seen transaxial image 158 unchanged from the prior study dated 01/15/2018. An additional poorly defined 1.5 cm regional area of increased density is present also similar compared to the prior study. Lung bases otherwise remain clear. Mediastinal and hilar regions show no significant adenopathy. There is possibility of a 1.1 cm node in the right retroclavicular region. This is identified at least in part on the study of 2011. IMPRESSION: 1. No change in the right middle lobe atypical foci of increased density, 2 of which show potential nodular type configuration. 2. Given the lack of interval change compared to the prior study given the relatively short time interval, a repeat study is again recommended in one month. 3. If these findings persist, PET scanning or bronchopleural bronchoscopy would be suggested as follow-up. The above report was generated using voice recognition software. It may contain grammatical, syntax or spelling errors. Electronically signed by: Chester Colmenares M.D. 01/28/2018 2:00 PM Dictated Date/Time: 01/28/2018 1:52 PM
== END | disposition home or self-care (01) ==
LOC: C.CTS 09:39
PROVIDERS: ATTEND Internal Medicine
DX: R91.8 Other nonspecific abnormal finding of lung field (principal); E11.9 Type 2 diabetes mellitus without complications; E78.5 Hyperlipidemia, unspecified

== ENCOUNTER → 2018-02-14 | Outpatient (CLI) | payer OTHER ==
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
== END | disposition home or self-care (01) ==
LOC: C.MRI 15:28
PROVIDERS: ATTEND Orthopaedic Surgery Orthopaedic Surgery of the Spine
DX: M54.2 Cervicalgia (principal)

== ENCOUNTER 2022-07-27 08:48 | Inpatient (IN) ==
[2022-07-27] MEDS ORDERED: CEFEPIME 2,000 MG/20 ML VIAL IV STA (10:16)
[2022-07-27] MEDS ORDERED: SODIUM CHLORIDE 0.9% 1000ML 1,000 ML IV SCH (10:30)
[2022-07-27 10:53] LABS: Alanine Aminotransferase 11 U/L (7-52); Albumin Level 2.9 gm/dl (3.4-5.0); Alkaline Phosphatase 83 U/L (34-104); Anion Gap 12 (3-11); Aspartate Aminotransferase 22 U/L (13-39); BUN Creatinine Ratio 29.7 (10-20); Bilirubin Direct 0.4 mg/dl (0-0.2); Blood Urea Nitrogen 27 mg/dl (6-23); Calcium 8.5 mg/dl (8.5-10.1); Carbon Dioxide 23 mmol/L (21-32); Chloride 100 mmol/L (98-107); Est GFR (African American) 66.2 ml/min; Est GFR (Non-African American) 57.1 ml/min; Glucose 247 mg/dl (70-99(Fasting)); Potassium 3.4 mmol/L (3.5-5.1); Sodium 135 mmol/L (136-145); Total Protein 6.9 gm/dl (6.0-8.3)
--- NOTE | 2022-07-27 11:03 | XRay Report ---
XR chest 1V portable HISTORY: Sepsis COMPARISON: Chest 08/02/2021. FINDINGS: There are low lung volumes. The cardiac silhouette remains mildly enlarged. There is mild p erihilar interstitial/vascular thickening consistent with mild congestive change. Otherwise, no new f ocal lung consolidations to suggest a pneumonia. No pleural fusions. No pneumothorax. IMPRESSION: Cardiomegaly with mild central pulmonary vascular congestion without overt edema. ACT 112: Negative or not required by law. Electronically signed by: Donnie Antoine M.D. 07/27/2022 11:02 AM
[2022-07-27 11:14] LABS: Basophils # (auto) 0.07 K/uL (0-0.2); Basophils % (auto) 0.5 %; Echinocytes 1+; Hematocrit (blood only) 36.5 % (34.1-44.9); Hemoglobin 12.4 g/dl (12.0-16.0); Immature Granulocytes # (auto) 0.11 K/uL (0.00-0.02); Immature Granulocytes % (auto) 0.8 %; Lymphocytes # (auto) 0.43 K/uL (1.2-3.4); Lymphocytes % (auto) 3.1 %; Mean Corpuscular Hemoglobin 32.6 pg (25.0-34.0); Mean Corpuscular Volume 96.1 fL (80.0-100.0); Mean Platelet Volume 11.1 fL (9.4-12.3); Monocytes # (auto) 0.37 K/uL (0.24-0.82); Monocytes % (auto) 2.6 %; Neutrophils # (auto) 13.07 K/uL (1.4-6.5); Platelet Count 236 K/uL (130-400); Polychromasia 1+; RDW Coefficient of Variation 14.3 % (11.5-14.5); RDW Standard Deviation 50.3 fL (36.4-46.3); Toxic Granulation 1+; Toxic Vacuolation 1+; White Blood Count 14.05 K/ul (4.8-10.8)
[2022-07-27 11:18] LABS: Troponin I High Sensitivity 63.8 pg/ml (0-14)
[2022-07-27 12:05] LABS: Appearance Urine Cloudy (Clear); Bacteria Urine Automated 4+ (Negative); Bilirubin Urine Negative (Negative); Blood Urine Trace (Negative); Color Urine Dark Yellow; Glucose Urine UA Negative (Negative); Ketones Urine Negative (Negative); Leukocyte Esterase Urine 3+ (Negative); Nitrite Urine Positive (Negative); RBC Urine Automated 0-4 /hpf (0-4); Urobilinogen Urine Negative (Negative); WBC Urine Automated >30 /hpf (0-5); pH Urine >= 9.0 (4.5-7.5)
[2022-07-27 12:15] LABS: Protein Urine 2+ (Negative)
--- NOTE | 2022-07-27 12:16 | Emergency Department Note ---
History of Present Illness General Chief complaint: Altered Mental Status Stated complaint: POSSIBLE SEPSIS Time Seen by Provider: 07/27/22 10:16 History of Present Illness Maximum Pain Intensity: 5 87-year-old female presents to the ED with a chief complaint of change in mental status and diminished alertness. The patient comes from . She was admitted there less than a week ago for a nonsurgical pelvis fracture. The patient, according to the daughter was good until yesterday. Yesterday she began to decline. She was a little altered this morning and is much weaker than she had been when she was initially admitted. The patient had elevated heart rate at and was sent here for further evaluation. The daughter does not feel that the patient has been eating very well or drinking well over there as well. She has not been able to participate much with the rehab because of her weakness. Home Medications Medication Instructions Recorded Confirmed Type Narcan Spr 4 mg NA DIRECTED PRN .opioid od 07/27/22 07/27/22 History acetaminophen 325 mg tablet 650 mg PO Q4 PRN Pain 07/27/22 07/27/22 History (Tylenol) azathioprine 50 mg tablet 150 mg PO DAILY 07/27/22 07/27/22 History betamethasone valerate 0.12 % 1 applic topical BID PRN .. 07/27/22 07/27/22 Hist ory topical foam bisacodyl 10 mg rectal suppository 10 mg [place] DAILY PRN Constipation 07/27/22 07/27/22 History buspirone 5 mg tablet 5 mg PO BID PRN Anxiety 07/27/22 07/27/22 History docusate sodium 100 mg tablet 100 mg PO BID 07/27/22 07/27/22 History dorzolamide-timolol (PF) 2 %-0.5 % 1 drp ophthalmic (eye) TID 07/27/22 07/27/22 History eye drops in a dropperette (Cosopt (PF)) escitalopram oxalate 5 mg tablet 5 mg PO DAILY 07/27/22 07/27/22 History heparin (porcine) 5,000 unit/mL 5,000 unit subcut Q8H 07/27/22 07/27/22 History injection solution hydrochlorothiazide 25 mg tablet 25 mg PO DAILY PRN .. 07/27/22 07/27/22 History hydrocodone 5 mg-acetaminophen 325 1 tab PO Q6H PRN .pain 7-10 07/27/22 07/27/22 History mg tablet latanoprost 0.005 % eye drops 1 drp OPL HS 07/27/22 07/27/22 History levothyroxine 125 mcg tablet 125 mcg PO DAILY 07/27/22 07/27/22 History (Synthroid) magnesium hydroxide 400 mg/5 mL 30 ml PO DAILY PRN Constipation 07/27/22 07/27/22 History oral suspension (Milk of Magnesia) methazolamide 25 mg tablet 25 mg PO BID 07/27/22 07/27/22 History metoprolol succinate 25 mg 12.5 mg PO DAILY 07/27/22 07/27/22 History tablet,extended release 24 hr mupirocin 2 % topical ointment 1 applic topical BID PRN .SKIN 07/27/22 07/27/22 History INFECTIONS ondansetron HCl 4 mg tablet 4 mg PO Q4 PRN nausea/vomiting 07/27/22 07/27/22 History polyethylene glycol 3350 17 gram 17 g PO .QLUNCH PRN Constipation 07/27/22 07/27/22 History oral powder packet (Miralax) sennosides 8.6 mg-docusate sodium 1 tab-cap PO .QLUNCH PRN 07/27/22 07/27/22 History 50 mg tablet (Senokot-S) Constipation spironolactone 25 mg tablet 12.5 mg PO DAILY 07/27/22 07/27/22 History verapamil 120 mg tablet,extended 120 mg PO Q8 07/27/22 07/27/22 History release Allergies Allergy/AdvReac Type Severity Reaction Status Date / Time ciprofloxacin Allergy Severe SHORTNESS Verified 07/27/22 11:47 OF BREATH acetaminophen Allergy Unknown AUTOIMMUNE Verified 07/27/22 11:47 DISORDER--LIVER ISSUES atropine Allergy Unknown CAN'T Verified 07/27/22 11:47 REMEMBER celecoxib [From Celebrex] Allergy Unknown CAN'T Verified 07/27/22 11:47 REMEMBER lisinopril Allergy Unknown CAN'T Verified 07/27/22 11:47 REMEMBER Penicillins Allergy Unknown 12/08/11 NO Verified 07/27/22 11:[address] DR CLARK H&P spironolactone Allergy Unknown CAN'T Verified 07/27/22 11:47 REMEMBER valacyclovir Allergy Unknown CAN'T Verified 07/27/22 11:47 REMEMBER codeine AdvReac Intermediate Gastrointestinal Verified 07/27/22 11:47 Upset isosorbide AdvReac Intermediate states it Verified 07/27/22 11:47 caused lichen planus morphine AdvReac Intermediate hallucinati Verified 07/27/22 11:47 on procaine [From Novocain] AdvReac Intermediate Gastrointestinal Verified 07/27/22 11:47 Upset telmisartan AdvReac Intermediate states Verified 07/27/22 11:47 this caused lichen planus tramadol AdvReac Unknown hallucinati Verified 07/27/22 11:47 ons lexapro AdvReac Mild Fatigued Uncoded 07/27/22 11:47 Past Med/Surg History Medical History Arthritis of multiple sites Autoimmune hepatitis 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) Epistaxis Fall Fracture of right orbital floor High risk medication use HTN (hypertension) Hyperlipidemia Hypothyroidism Injury of right lower leg Myasthenia gravis Pain syndrome, chronic Polymyositis-dermatomyositis Spinal stenosis Type 2 diabetes mellitus Surgical History History of breast biopsy History of esophagogastroduodenoscopy (EGD) History of eye surgery History of hysterectomy History of repair of rectocele History of rotator cuff surgery History of sigmoidoscopy History of tubal ligation Family History Daughter Polymyositis Dermatomyositis Other Diabetes Heart disease Hypertension Nephrolithiasis Denies family history of Ovarian cancer Prostate cancer Breast cancer Colorectal cancer Social History Smoking Status: Never smoker Second Hand Exposure: No; Hx Alcohol Use: No Hx Substance Use: No Preferred Language: [place]ian Communication Ability: Effective Visual Impairment: Limited Hearing Ability: Normal marital status: Current Living Situation: Spouse current occupational status: retired Feels Safe at Home: Yes Childhood Exposure to Second-Hand Smoke: No caffeine: Yes Dental Care, Regularly: Yes Physical Activity Frequency: 5-6 Times per Week Seatbelt Use: always Sunscreen Use: Yes Review of Systems A total of 10 systems reviewed and were otherwise negative Physical Exam Vital Signs Vital Signs - 24 hr 07/27/22 09:00 07/27/22 09:16 07/27/22 10:17 Temperature 36.7 C Temperature Source Oral Pulse Rate 113 H Pulse Rate [Apical] Pulse Rhythm [Apical] Pulse Strength [Apical] Respiratory Rate 18 Respiratory Effort / Characteristics Non-Labored Spontaneous Respiratory Depth Normal Respiratory Pattern Regular Blood Pressure 161/103 H Blood Pressure [Right Arm] Blood Pressure Mean 122 Blood Pressure Mean [Right Arm] Blood Pressure Position Sitting Blood Pressure Position [Right Arm] Pulse Oximetry 98 115 H 97 Oxygen Delivery Method Room Air Room Air Room Air Sepsis Recent Fever Within 48 Hours Yes Sepsis New/Unexplained Change in Mental Status N/A Sepsis Action Taken by Nursing No Action Required 07/27/22 10:17 07/27/22 09:16 07/27/22 12:00 Temperature Temperature Source Pulse Rate Pulse Rate [Apical] 105 H 65 117 H Pulse Rhythm [Apical] Regular Pulse Strength [Apical] Normal Respiratory Rate 18 18 18 Respiratory Effort / Characteristics Non-Labored Spontaneous Non-Labored Spontaneous Non-Labored Respiratory Depth Normal Normal Normal Respiratory Pattern Regular Regular Regular Blood Pressure Blood Pressure [Right Arm] 161/103 H 133/66 137/57 L Blood Pressure Mean Blood Pressure Mean [Right Arm] 122 88 83 Blood Pressure Position Blood Pressure Position [Right Arm] Sitting Sitting Lying Pulse Oximetry 97 97 95 Oxygen Delivery Method Room Air Room Air Room Air Sepsis Recent Fever Within 48 Hours Sepsis New/Unexplained Change in Mental Status Sepsis Action Taken by Nursing CONSTITUTIONAL/VITAL SIGNS: Reviewed / noted above. GENERAL: Non-toxic in appearance. INTEGUMENTARY: Warm, dry, and [employer]. HEAD: Normocephalic. EYES: without scleral icterus or trauma. ENT/OROPHARYNX: clear and dry. LYMPHADENOPATHY/NECK: Is supple without lymphadenopathy or meningismus. RESPIRATORY: Clear to auscultation bilaterally. No increased work of breathing. CARDIOVASCULAR: Regular rate and rhythm. ANA. GI/ABDOMEN: Soft and nontender. No organomegaly or pulsatile mass. EXTREMITIES: Warm and well perfused. NEUROLOGICAL: Generalized weakness. Not very alert. Opens eyes and answers basic questions but seems to fall asleep quickly. PSYCHIATRIC: normal affect. MUSCULOSKELETAL: Generally weak. TRIAGE NURSING DOCUMENTATION REVIEWED. Course Administered Medications Discontinued Medications Sodium Chloride (Nss 1000ml) 1,000 mls @ 999 mls/hr IV .Q1H1M GISSELL Stop: 07/27/22 11:30 Last Admin: 07/27/22 11:54 Dose: 999 mls/hr Documented By: JULEE Cefepime HCl (Maxipime) 2,000 mg in 20 mls @ 5 mls/min IV NOW STA; Protocol Stop: 07/27/22 10:19 Last Admin: 07/27/22 11:54 Dose: 5 mls/min Documented By: JULEE Medical Decision Making Differential Diagnosis Differential includes acute coronary syndrome, myocardial infarction, CVA, TIA, anemia, infection, pneumonia, UTI, pyelonephritis, poor nutrition, dehydration, electrolyte disturbance,hypoglycemia. Medical Records Attestation: I reviewed the patient's medical records. Home Medications Current Medication List: was personally reviewed by me Laboratory Data Attestation: I reviewed the patient's lab results. Result diagrams: 07/27/22 09:28 07/27/22 09:28 Lab Results 07/27/22 07/27/22 07/27/22 Range/Units 09:28 09:28 09:28 WBC 14.05 H (4.8-10.8) K/ul RBC 3.80 L (3.93-5.22) M/uL Hgb 12.4 (12.0-16.0) g/dl Hct 36.5 (34.1-44.9) % MCV 96.1 (80.0-100.0) fL MCH 32.6 (25.0-34.0) pg MCHC 34.0 (32.0-36.0) g/dL RDW Std Deviation 50.3 H (36.4-46.3) fL RDW Coeff of Daisy 14.3 (11.5-14.5) % Plt Count 236 (130-400) K/uL MPV 11.1 (9.4-12.3) fL Immature Gran % (Auto) 0.8 % Neut % (Auto) 93.0 % Lymph % (Auto) 3.1 % [place] % (Auto) 2.6 % Eos % (Auto) 0.0 % Baso % (Auto) 0.5 % Neut # (Auto) 13.07 H (1.4-6.5) K/uL Lymph # (Auto) 0.43 L (1.2-3.4) K/uL [place] # (Auto) 0.37 (0.24-0.82) K/uL Eos # (Auto) 0.00 (0-0.50) K/uL Baso # (Auto) 0.07 (0-0.2) K/uL Immature Gran # (Auto) 0.11 H (0.00-0.02) K/uL Toxic Granulation 1+ Toxic Vacuolation 1+ Polychromasia 1+ Echinocytes 1+ Sodium 135 L (136-145) mmol/L Potassium 3.4 L (3.5-5.1) mmol/L Chloride 100 (98-107) mmol/L Carbon Dioxide 23 (21-32) mmol/L Anion Gap 12 H (3-11) BUN 27 H (6-23) mg/dl Creatinine 0.91 (0.6-1.2) mg/dl Est Cr Clr Drug Dosing Not Reportable Est GFR ( Amer) 66.2 ml/min Est GFR (Non-Af Amer) 57.1 ml/min BUN/Creatinine Ratio 29.7 H (10-20) Glucose 247 H (70-99(Fasting)) mg/dl Lactate (0.4-2.0) mmol/L Calcium 8.5 (8.5-10.1) mg/dl Magnesium 2.0 (1.7-2.4) mg/dl Total Bilirubin 1.0 (0.2-1.0) mg/dl Direct Bilirubin 0.4 H (0-0.2) mg/dl AST 22 (13-39) U/L ALT 11 (7-52) U/L Alkaline Phosphatase 83 (34-104) U/L Troponin I High Sens 63.8 H* (0-14) pg/ml Total Protein 6.9 (6.0-8.3) gm/dl Albumin 2.9 L (3.4-5.0) gm/dl Procalcitonin 1.11 H (0-0.5) ng/ml Urine Color Urine Appearance (Clear) Urine pH (4.5-7.5) Ur Specific [place] (1.000-1.030) Urine Protein (Negative) Urine Glucose (UA) (Negative) Urine Ketones (Negative) Urine Blood (Negative) Urine Nitrite (Negative) Urine Bilirubin (Negative) Urine Urobilinogen (Negative) Ur Leukocyte Esterase (Negative) Urine WBC (Auto) (0-5) /hpf Urine RBC (Auto) (0-4) /hpf U Hyaline Cast (Auto) (0-5) /lpf U Epithel Cells (Auto) (0-5) /lpf Urine Bacteria (Auto) (Negative) 07/27/22 07/27/22 Range/Units 11:10 11:19 WBC (4.8-10.8) K/ul RBC (3.93-5.22) M/uL Hgb (12.0-16.0) g/dl Hct (34.1-44.9) % MCV (80.0-100.0) fL MCH (25.0-34.0) pg MCHC (32.0-36.0) g/dL RDW Std Deviation (36.4-46.3) fL RDW Coeff of Daisy (11.5-14.5) % Plt Count (130-400) K/uL MPV (9.4-12.3) fL Immature Gran % (Auto) % Neut % (Auto) % Lymph % (Auto) % [place] % (Auto) % Eos % (Auto) % Baso % (Auto) % Neut # (Auto) (1.4-6.5) K/uL Lymph # (Auto) (1.2-3.4) K/uL [place] # (Auto) (0.24-0.82) K/uL Eos # (Auto) (0-0.50) K/uL Baso # (Auto) (0-0.2) K/uL Immature Gran # (Auto) (0.00-0.02) K/uL Toxic Granulation Toxic Vacuolation Polychromasia Echinocytes Sodium (136-145) mmol/L Potassium (3.5-5.1) mmol/L Chloride (98-107) mmol/L Carbon Dioxide (21-32) mmol/L Anion Gap (3-11) BUN (6-23) mg/dl Creatinine (0.6-1.2) mg/dl Est Cr Clr Drug Dosing Est GFR ( Amer) ml/min Est GFR (Non-Af Amer) ml/min BUN/Creatinine Ratio (10-20) Glucose (70-99(Fasting)) mg/dl Lactate 3.1 H* (0.4-2.0) mmol/L Calcium (8.5-10.1) mg/dl Magnesium (1.7-2.4) mg/dl Total Bilirubin (0.2-1.0) mg/dl Direct Bilirubin (0-0.2) mg/dl AST (13-39) U/L ALT (7-52) U/L Alkaline Phosphatase (34-104) U/L Troponin I High Sens (0-14) pg/ml Total Protein (6.0-8.3) gm/dl Albumin (3.4-5.0) gm/dl Procalcitonin (0-0.5) ng/ml Urine Color Dark Yellow Urine Appearance Cloudy A (Clear) Urine pH >= 9.0 H (4.5-7.5) Ur Specific [place] 1.020 (1.000-1.030) Urine Protein 2+ H (Negative) Urine Glucose (UA) Negative (Negative) Urine Ketones Negative (Negative) Urine Blood Trace H (Negative) Urine Nitrite Positive A (Negative) Urine Bilirubin Negative (Negative) Urine Urobilinogen Negative (Negative) Ur Leukocyte Esterase 3+ H (Negative) Urine WBC (Auto) >30 H (0-5) /hpf Urine RBC (Auto) 0-4 (0-4) /hpf U Hyaline Cast (Auto) 5-10 H (0-5) /lpf U Epithel Cells (Auto) 10-20 H (0-5) /lpf Urine Bacteria (Auto) 4+ H (Negative) Imaging Data Radiologist's Impression: Chest X-Ray 07/27/22 10:17 XR chest 1V portable HISTORY: Sepsis COMPARISON: Chest 08/02/2021. FINDINGS: There are low lung volumes. The cardiac silhouette remains mildly enlarged. There is mild perihilar interstitial/vascular thickening consistent with mild congestive change. Otherwise, no new focal lung consolidations to suggest a pneumonia. No pleural fusions. No pneumothorax. IMPRESSION: Cardiomegaly with mild central pulmonary vascular congestion without overt edema. ACT 112: Negative or not required by law. Electronically signed by: Donnie Antoine M.D. 07/27/2022 11:02 AM ECG Data Attestation: I personally reviewed and interpreted this ECG as follows: Additional Comments: Twelve-lead EKG: Per my interpretation shows a sinus tach at a rate of 115. No ST elevation. No PVCs. Normal QTC. MDM Narrative 87-year-old female presents with generalized weakness and diminishing alertness recently. Her EKG showed a sinus tach. Her tongue was dry on exam. She has generalized weakness. Not very alert. Falls asleep easily. White blood cell count is 14. Chemistry panel shows a BUN of 27 and a glucose of 247. Troponin is elevated at 63.8. Procalcitonin is mildly elevated at 1.11. Lactic acid is 3.1. Urinalysis shows findings suggestive of infection. The patient was given IV cefepime. A liter of normal saline was also provided. She will be seen by the hospitalist for further evaluation and care. Impression & Plan Generalized muscle weakness, Altered mental status, UTI (urinary tract infection) Discharge Plan Visit Data Chief Complaint: Altered Mental Status Stated Complaint: POSSIBLE SEPSIS ED Provider: Magan Donaldson Discharge Problem: Generalized muscle weakness, Altered mental status, UTI (urinary tract infection) Patient Disposition: Admitted As Inpatient Forms Stand Alone Forms: [facility], Virtual Emergency Department, Important Visit Information Prescriptions Prescriptions: No Action verapamil 120 mg Tablet Extended Release 120 mg PO Q8 latanoprost 0.005 % Drops 1 drp OPL HS buspirone 5 mg tablet 5 mg PO BID PRN (Reason: Anxiety) acetaminophen [Tylenol] 325 mg Tablet 650 mg PO Q4 PRN (Reason: Pain) polyethylene glycol 3350 [Miralax] 17 gram Powder In Packet 17 g PO .QLUNCH PRN (Reason: Constipation) hydrocodone-acetaminophen [Lortab 5-325] 5-325 mg Tablet 1 tab PO Q6H PRN (Reason: .pain 7-10) ondansetron HCl [Zofran] 4 mg Tablet 4 mg PO Q4 PRN (Reason: nausea/vomiting) sennosides-docusate sodium [Senokot-S] 8.6-50 mg Tablet 1 tab-cap PO .QLUNCH PRN (Reason: Constipation) azathioprine 50 mg Tablet 150 mg PO DAILY spironolactone 25 mg Tablet 12.5 mg PO DAILY magnesium hydroxide [Milk of Magnesia] 400 mg/5 mL Suspension 30 ml PO DAILY PRN (Reason: Constipation) bisacodyl 10 mg Suppository 10 mg [place] DAILY PRN (Reason: Constipation) levothyroxine [Synthroid] 125 mcg Tablet 125 mcg PO DAILY methazolamide 25 mg Tablet 25 mg PO BID hydrochlorothiazide 25 mg Tablet 25 mg PO DAILY PRN (Reason: ..) mupirocin 2 % ointment 1 applic TOPICAL BID PRN (Reason: .SKIN INFECTIONS) metoprolol succinate 25 mg tablet extended release 24 hr 12.5 mg PO DAILY betamethasone valerate 0.12 % Foam 1 applic TOPICAL BID PRN (Reason: ..) heparin (porcine) 5,000 unit/mL Solution 5,000 unit SUBCUT Q8H docusate sodium 100 mg Tablet 100 mg PO BID escitalopram oxalate 5 mg tablet 5 mg PO DAILY dorzolamide-timolol (PF) [Cosopt (PF)] 2-0.5 % Dropperette 1 drp OPHTHALMIC (EYE) TID Narcan Spr 4 mg NA DIRECTED PRN (Reason: .opioid od) Rx Instructions: 4 mg = 0.1ml, spray Referrals Referrals: Stanley Zavaleta MD [Primary Care Provider] -
--- NOTE | 2022-07-27 13:00 | History & Physical Report ---
Date of Service July 27, 2022 Assessment & Plan (1) Sepsis secondary to UTI: Plan: Suspected source urine Lactate 3.1, repeat pending NSS 1L given in emergency room and 500ml NSS given prior to arrival. Cefepime 2 g IV given in the emergency room, given immunosuppression with azathioprine we will continue this pending urine and blood cultures No TYREL or CVA tenderness to suggest need for abdominal imaging (2) Visual loss, both eyes: Plan: 30% vision in right, no vision in left. Causing difficulty ambulating (3) Altered mental status: Plan: Suspected secondary to infection above. Per daughter she should not have any opiates in her system (last one on ?Sunday. (4) Closed fracture of pubic ramus: Plan: Acetaminophen 1g PO BID (reduced dose due to autoimmune hepatitis) Avoid opiates due to altered mental status (5) Elevated troponin I level: Plan: No chest pain or shortness of breath to suspect ACS, hoiwever unable to get accurate history from the patient. Will trend to peak. (6) Aortic stenosis, moderate: Plan: We will monitor patient closely on the PCU for respiratory compromise with her IV fluids. (7) HTN (hypertension): Plan: Continue metoprolol succinate 12.5 mg p.o. at bedtime and verapamil sustained- release 120 mg p.o. q8h as long as this doesn't make her hypotensive. (8) Myasthenia gravis: Plan: Reportedly on IVIG for myasthenia gravis. She is not on pyridostigmine per her daughter at bedside. (9) Polymyositis-dermatomyositis: Plan: Controlled with IVIG therapy as outpatient Will get CK with AM labs (10) Autoimmune hepatitis: Plan: Hold azathioprine in the setting of severe infection (11) Glaucoma: Plan: Continue Cosopt eyedrops Will hold methazolamide initially but can be restarted as blood pressure allows Plan VTE prophylaxis - Lovenox 40 mg subcu daily Diet - clear liquids while altered, can advance as mentation improves Disposition - admit to PCU Admission and Anticipated Discharge Date Admission Date: July 27, 2022 History of Present Illness Chief Complaint: Altered mental state Primary Care Provider: Stanley Zavaleta MD Ekta Vega is an 87 year old female who presents to the ER via EMS from [facility] with altered mental status. History is obtained from notes from [facility], [facility] and daughter at bedside. Unable to get any meaningful history from the patient due to altered mental status. The patient's baseline is orientated x3, no significant confusion but mild dementia where she will mix up events occasionally, walking independently. She fell on 07/07/22 tripping accidently over a humidifier. She came to the ER on 07/21/22 due to worsening right him and knee pain. She was diagnosed with subacute nondisplaced healing fractures of left inferior and superior pubic rami and medial right pubic bone. Given non-surgical nature of this she was discharged straight to [facility] from the emergency room for inpatient rehabilitation. She became less alert and less able to participate in physical therapy as the week went on. Initially she was on opiates for pain relief which her daughter asked to stop on Sunday or Sunday. She mainly slept yesterday and given increased lethargy today she was sent to the ER for further workup. She currently is confused but denies any pain, urinary symptoms or upper respiratory symptoms. 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 She also has a significant history of myasthenia gravis 10-15 years ago requiring a feeding tube and was previosuly wheelchair bound until this was treated at [facility]. She takes azathioprine for autoimmune hepatitis. Allergies Allergy/AdvReac Type Severity Reaction Status Date / Time ciprofloxacin Allergy Severe SHORTNESS Verified 07/27/22 11:47 OF BREATH atropine Allergy Unknown CAN'T Verified 07/27/22 11:47 REMEMBER celecoxib [From Celebrex] Allergy Unknown CAN'T Verified 07/27/22 11:47 REMEMBER lisinopril Allergy Unknown CAN'T Verified 07/27/22 11:47 REMEMBER Penicillins Allergy Unknown 12/08/11 NO Verified 07/27/22 11:[address] DR CLARK H&P spironolactone Allergy Unknown CAN'T Verified 07/27/22 11:47 REMEMBER valacyclovir Allergy Unknown CAN'T Verified 07/27/22 11:47 REMEMBER codeine AdvReac Intermediate Gastrointestinal Verified 07/27/22 11:47 Upset isosorbide AdvReac Intermediate states it Verified 07/27/22 11:47 caused lichen planus morphine AdvReac Intermediate hallucinati Verified 07/27/22 11:47 on procaine [From Novocain] AdvReac Intermediate Gastrointestinal Verified 07/27/22 11:47 Upset telmisartan AdvReac Intermediate states Verified 07/27/22 11:47 this caused lichen planus escitalopram [From Lexapro] AdvReac Mild Fatigued Verified 07/28/22 06:38 acetaminophen AdvReac Unknown limit to Verified 07/28/22 06:38 2gm/day~AUTOIMMUNE DISORDER--LIVER ISSUES tramadol AdvReac Unknown hallucinati Verified 07/27/22 11:47 ons Home Medications Medication Instructions Recorded Confirmed Type Narcan Spr 4 mg NA DIRECTED PRN .opioid od 07/27/22 07/27/22 History acetaminophen 325 mg tablet 650 mg PO Q4 PRN Pain 07/27/22 07/27/22 History (Tylenol) azathioprine 50 mg tablet 150 mg PO DAILY 07/27/22 07/27/22 History betamethasone valerate 0.12 % 1 applic topical BID PRN .. 07/27/22 07/27/22 History topical foam bisacodyl 10 mg rectal suppository 10 mg WA DAILY PRN Constipation 07/27/22 07/27/22 History docusate sodium 100 mg tablet 100 mg PO BID 07/27/22 07/27/22 History dorzolamide-timolol (PF) 2 %-0.5 % 1 drp ophthalmic (eye) TID 07/27/22 07/27/22 History eye drops in a dropperette (Cosopt (PF)) escitalopram oxalate 5 mg tablet 5 mg PO HS 07/27/22 07/27/22 History heparin (porcine) 5,000 unit/mL 5,000 unit subcut Q8H 07/27/22 07/27/22 History injection solution hydrocodone 5 mg-acetaminophen 325 1 tab PO Q6H PRN .pain 7-10 07/27/22 07/27/22 History mg tablet levothyroxine 125 mcg tablet 125 mcg PO DAILY 07/27/22 07/27/22 History (Synthroid) magnesium hydroxide 400 mg/5 mL 30 ml PO DAILY PRN Constipation 07/27/22 07/27/22 History oral suspension (Milk of Magnesia) methazolamide 25 mg tablet 25 mg PO BID 07/27/22 07/27/22 History metoprolol succinate 25 mg 12.5 mg PO HS 07/27/22 07/27/22 History tablet,extended release 24 hr mupirocin 2 % topical ointment 1 applic topical BID PRN .SKIN 07/27/22 07/27/22 History INFECTIONS ondansetron HCl 4 mg tablet 4 mg PO Q4 PRN nausea/vomiting 07/27/22 07/27/22 History polyethylene glycol 3350 17 gram 17 g PO .QLUNCH PRN Constipation 07/27/22 07/27/22 History oral powder packet (Miralax) sennosides 8.6 mg-docusate sodium 1 tab-cap PO .QLUNCH PRN 07/27/22 07/27/22 History 50 mg tablet (Senokot-S) Constipation spironolactone 25 mg tablet 12.5 mg PO DAILY 07/27/22 07/27/22 History verapamil 120 mg tablet,extended 120 mg PO Q8 07/27/22 07/27/22 History release Past Med/Surg History Medical History (Updated 07/28/22 @ 06:38 by Tremaine Xiong MD) Arthritis of multiple sites Autoimmune hepatitis 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) Epistaxis Fall Fracture of right orbital floor High risk medication use HTN (hypertension) Hyperlipidemia Hypothyroidism Injury of right lower leg Myasthenia gravis Pain syndrome, chronic Polymyositis-dermatomyositis Spinal stenosis Type 2 diabetes mellitus Surgical History History of breast biopsy History of esophagogastroduodenoscopy (EGD) History of eye surgery History of hysterectomy History of repair of rectocele History of rotator cuff surgery History of sigmoidoscopy History of tubal ligation Family History Daughter Polymyositis Dermatomyositis Other Diabetes Heart disease Hypertension Nephrolithiasis Denies family history of Ovarian cancer Prostate cancer Breast cancer Colorectal cancer Social History Smoking Status: Never smoker Second Hand Exposure: No; Hx Alcohol Use: No Hx Substance Use: No Preferred Language: Azeri Communication Ability: Effective Communication Ability Comment: 30% vision to both eyes Visual Impairment: Limited Hearing Ability: Normal Lab Animal Technologist Required: No Beliefs That Will Affect Care: None marital status: Current Living Situation: Rehab current occupational status: retired Other Information That Helps Us Care for You: No Feels Safe at Home: Yes Safety Concerns: Feels Safe At This Time Childhood Exposure to Second-Hand Smoke: No caffeine: Yes Dental Care, Regularly: Yes Physical Activity Frequency: 5-6 Times per Week Seatbelt Use: always Sunscreen Use: Yes Assistive Devices: Denture - Lower, Glasses and Walker Review of Systems Review of Systems: Unobtainable due to cognitive status (she generally notes she is not in pain, but full ROS unobtainable) Physical Exam Constitutional: well developed; + not well nourished and no acute distress Eyes: + anicteric sclerae; normal pupil size (unable to test reflex as patient unable to keep eyes open) ENMT: Mouth: + dry oral mucous membranes Neck: trachea midline, no thyromegaly Respiratory: + retractions, + uses accessory muscles and + prolonged expiratory phase Auscultation: lungs clear to auscultation bilaterally; no crackles, no rales, no rhonchi and no wheezes Cardiovascular: Rate/Rhythm: regular rate and regular rhythm Heart Sounds: + murmur (loudest in apex, daughter reports chronic) Extremities: normal capillary refill and + pedal edema; no calf tenderness Gastrointestinal (Abdomen): Inspection/Auscultation: abdomen normal to inspection and normal bowel sounds; abdomen not distended Percussion/Palpation: abdomen soft; abdomen nontender, no guarding and abdomen not rigid Skin: no rashes, warm and dry (no areas of cellulitis seen but unable to exam back on admission) Neurologic: moves all extremities, awake (falls asleep easily) and + confused; no focal motor deficits (no lateralizing deficit) Speech / Cognition: normal speech Psychiatric: Orientation: alert, oriented to person and oriented to place; + not oriented to time Genitourinary: no CVA tenderness Results & Data Results [facility] ([facility]) Vital Signs (Past 12 Hours) Vital Signs Temp Pulse Pulse Resp BP BP Pulse Ox 07/27/22 12:00 117 H 18 137/57 L 95 07/27/22 09:16 65 18 133/66 97 07/27/22 10:17 105 H 18 161/103 H 97 07/27/22 10:17 97 10/20/22 09:16 115 H 07/27/22 09:00 36.7 C 113 H 18 161/103 H 98 O2 Del Method 07/27/22 12:00 Room Air 07/27/22 09:16 Room Air 07/27/22 10:17 Room Air 07/27/22 10:17 Room Air 07/27/22 09:16 Room Air 07/27/22 09:00 Room Air Laboratory Results Abnormal lab results 07/27/22 07/27/22 07/27/22 Range/Units 09:28 09:28 09:28 WBC 14.05 H (4.8-10.8) K/ul RBC 3.80 L (3.93-5.22) M/uL RDW Std Deviation 50.3 H (36.4-46.3) fL Neut # (Auto) 13.07 H (1.4-6.5) K/uL Lymph # (Auto) 0.43 L (1.2-3.4) K/uL Immature Gran # (Auto) 0.11 H (0.00-0.02) K/uL Sodium 135 L (136-145) mmol/L Potassium 3.4 L (3.5-5.1) mmol/L Anion Gap 12 H (3-11) BUN 27 H (6-23) mg/dl BUN/Creatinine Ratio 29.7 H (10-20) Glucose 247 H (70-99(Fasting)) mg/dl Lactate (0.4-2.0) mmol/L Direct Bilirubin 0.4 H (0-0.2) mg/dl Troponin I High Sens 63.8 H* (0-14) pg/ml Albumin 2.9 L (3.4-5.0) gm/dl Procalcitonin 1.11 H (0-0.5) ng/ml Urine Appearance (Clear) Urine pH (4.5-7.5) Urine Protein (Negative) Urine Blood (Negative) Urine Nitrite (Negative) Ur Leukocyte Esterase (Negative) Urine WBC (Auto) (0-5) /hpf U Hyaline Cast (Auto) (0-5) /lpf U Epithel Cells (Auto) (0-5) /lpf Urine Bacteria (Auto) (Negative) 07/27/22 07/27/22 Range/Units 11:10 11:19 WBC (4.8-10.8) K/ul RBC (3.93-5.22) M/uL RDW Std Deviation (36.4-46.3) fL Neut # (Auto) (1.4-6.5) K/uL Lymph # (Auto) (1.2-3.4) K/uL Immature Gran # (Auto) (0.00-0.02) K/uL Sodium (136-145) mmol/L Potassium (3.5-5.1) mmol/L Anion Gap (3-11) BUN (6-23) mg/dl BUN/Creatinine Ratio (10-20) Glucose (70-99(Fasting)) mg/dl Lactate 3.1 H* (0.4-2.0) mmol/L Direct Bilirubin (0-0.2) mg/dl Troponin I High Sens (0-14) pg/ml Albumin (3.4-5.0) gm/dl Procalcitonin (0-0.5) ng/ml Urine Appearance Cloudy A (Clear) Urine pH >= 9.0 H (4.5-7.5) Urine Protein 2+ H (Negative) Urine Blood Trace H (Negative) Urine Nitrite Positive A (Negative) Ur Leukocyte Esterase 3+ H (Negative) Urine WBC (Auto) >30 H (0-5) /hpf U Hyaline Cast (Auto) 5-10 H (0-5) /lpf U Epithel Cells (Auto) 10-20 H (0-5) /lpf Urine Bacteria (Auto) 4+ H (Negative) Diagnostic Findings XR chest 1V portable HISTORY: Sepsis COMPARISON: Chest 08/02/2021. FINDINGS: There are low lung volumes. The cardiac silhouette remains mildly enlarged. There is mild perihilar interstitial/vascular thickening consistent with mild congestive change. Otherwise, no new focal lung consolidations to suggest a pneumonia. No pleural fusions. No pneumothorax. IMPRESSION: Cardiomegaly with mild central pulmonary vascular congestion without overt edema. Medications Administered ER medications given: NSS 1 hour bolus Cefepime 2 g IV ECG Rate (beats per minute): 115 Rhythm: sinus tachycardia Findings: + nonspecific-ST abn Comparison ECG Date: from (October 29, 2020) Change: the following changes noted (Nonspecific ST segment changes in inferior leads however poor quality makes EKG difficult to interpret) Code Status & VTE Plan Code Status Full VTE Prophylaxis Plan VTE Prophylaxis will be ordered: Yes PG Care Time/CCT Total # of Minutes Spent Total Time Spent with Patient: Total time spent is greater than 50% in coordination of care (as documented) at patient's floor/unit and/or counseling patient: Coding Level of Care Code 61089 Initial Inpt Care Lvl 3 Diagnoses Sepsis secondary to UTI A41.9; N39.0 Visual loss, both eyes H54.3 Altered mental status R41.82 Closed fracture of pubic ramus S32.599A Elevated troponin I level R77.8 Aortic stenosis, moderate I35.0 HTN (hypertension) I10 Myasthenia gravis G70.00 Polymyositis-dermatomyositis M33.90 Autoimmune hepatitis K75.4 Glaucoma H40.9
--- NOTE | 2022-07-27 15:29 | Electrocardiogram Report ---
Test Reason : Blood Pressure : / mmHG Vent. Rate : 115 BPM Atrial Rate : 115 BPM P-R Int : 132 ms QRS Dur : 088 ms QT Int : 338 ms P-R-T Axes : 089 048 085 degrees QTc Int : 467 ms Poor data quality, interpretation may be adversely affected Sinus tachycardia Biatrial enlargement Nonspecific ST and T wave abnormality Anterolateral leads Abnormal ECG When compared with ECG of 29-OCT-2020 02:37, HR has increased by 25 bpm Premature ventricular complexes are no longer Present Confirmed by Dalton Dockery ([id number]) on 07/27/2022 3:29:00 PM Referred By: REFERRED SELF Confirmed By:Dalton Dockery
[2022-07-27] MEDS ORDERED: busPIRone 5 MG TAB PO PRN (16:47)
[2022-07-27] MEDS ORDERED: INFLUENZA VACCINE HIGH DOSE PF 65+ 0.7 ML SYR IM ONE (17:18)
[2022-07-27] MEDS: NSS + 20MEQ KCL 20 MEQ/1,000 ML BAG IV SCH (18:31)
[2022-07-27] MEDS: LATANOPROST 0.005% OP SOLN 2.5 ML BTL OPL SCH (20:26)
[2022-07-27] MEDS: DOCUSATE SODIUM 100 MG CAP PO SCH (20:26)
[2022-07-27] MEDS: CEFEPIME 2,000 MG in SYRINGE 0 ML IV SCH (20:29)
[2022-07-27] MEDS: VERAPAMIL HCL 120 MG TABCR PO SCH (22:30)
[2022-07-27] MEDS: ENOXAPARIN INJ 40 MG/0.4 ML SYR SQ SCH (22:30)
[2022-07-27] MEDS: METOPROLOL SUCC 25MG EXT REL TAB PO SCH (22:31)
[2022-07-27 23:50] LABS: A calco-baum cmplx NotReported Not Detected (NotDetected); Bact fragilis Not Reported Not Detected (NotDetected); C auris Not Reported Not Detected (NotDetected); Calbicans Not Reported Not Detected (NotDetected); Candida glabrata Not Reported Not Detected (NotDetected); Candida krusei Not Reported Not Detected (NotDetected); Cneoformans/gatti Not Reported Not Detected (NotDetected); Cparapsilosis Not Reported Not Detected (NotDetected); Ctropicalis Not Reported Not Detected (NotDetected); E cloacae compx Not Reported Not Detected (NotDetected); Efaecalis Not Reported Not Detected (NotDetected); Efaecium Not Reported Not Detected (NotDetected); Enterobacterales Not Reported Not Detected (NotDetected); Escherichia coli Not Reported Not Detected (NotDetected); H influenzae Not Reported Not Detected (NotDetected); K aerogenes Not Reported Not Detected (NotDetected); Koxytoca Not Reported Not Detected (NotDetected); Kpneumoniae grp Not Reported Not Detected (NotDetected); Lmonocyt Not Reported Not Detected (NotDetected); N meningitidis Not Reported Not Detected (NotDetected); P aeruginosa Not Reported Not Detected (NotDetected); Proteus spp Not Reported Not Detected (NotDetected); Salmonella spp Not Reported Not Detected (NotDetected); Smarcescens Not Reported Not Detected (NotDetected); Staph lugdunensis Not Reported Not Detected (NotDetected); Staph spp. Not Reported DETECTED (NotDetected); Staphaureus Not Reported DETECTED (NotDetected); Staphepi Not Reported Not Detected (NotDetected); Staphylococcus spp. DETECTED (NotDetected); Stenmaltophilia Not Reported Not Detected (NotDetected); Strep agal(GrpB) Not Reported Not Detected (NotDetected); Strep pneum Not Reported Not Detected (NotDetected); Strep pyog (GrpA) Not Reported Not Detected (NotDetected); Strep spp Not Reported Not Detected (NotDetected); mecAC+MREJ Resistant Gene MRSA Not Detected (NotDetected)
[2022-07-28] MEDS ORDERED: ACETAMINOPHEN 325 MG TAB PO ONE (00:07)
--- NOTE | 2022-07-28 00:10 | Communication Note ---
Date of Service: July 28, 2022 complaining of 6/10 pelvic pain (10/10 when I assessed at bedside). hx of fall 07/07 w/ subsequent pelvic fracture. plan: tylenol 650mg PO x1. (max of 2000mg tylenol/day in setting of autoimmune hepatitis, but will try to use as sparingly as possible). no pelvic imaging at this time nursing has just noticed right ring finger pain and swelling. neurovasc intact on exam. ordering xray of right hand mentation: being treated for presumed UTI. no significant changes in mentation this shift. A&O x1-2 (thought was at [facility]). answering questions ap propriately. no headache. not ordering head CT notified of prelim pos blood cultures 3/4 tubes pos for gram positive cocci clusters, likely MSSA per pcr. continue cefepime 2g q12h hs trop elevated from 63.8 this morning, to 31.4 to 828.1 (peaked) back down to 727.6. in context of UTI and bacteremia, most c/w demand ischemia
[2022-07-28] MEDS: NSS + 20MEQ KCL 20 MEQ/1,000 ML BAG IV SCH ×2 (04:40→13:53)
[2022-07-28] MEDS: LEVOTHYROXINE SODIUM 125 MCG TABLET PO SCH (06:11)
[2022-07-28] MEDS: VERAPAMIL HCL 120 MG TABCR PO SCH ×3 (06:11→20:56)
[2022-07-28 07:22] LABS: Hematocrit (blood only) 29.9 % (34.1-44.9); Hemoglobin 10.2 g/dl (12.0-16.0); Mean Corpuscular Hemoglobin 32.4 pg (25.0-34.0); Mean Corpuscular Hgb Conc 34.1 g/dL (32.0-36.0); Mean Corpuscular Volume 94.9 fL (80.0-100.0); Platelet Count 160 K/uL (130-400); RDW Coefficient of Variation 14.3 % (11.5-14.5); RDW Standard Deviation 49.7 fL (36.4-46.3); Red Blood Count 3.15 M/uL (3.93-5.22); White Blood Count 10.02 K/ul (4.8-10.8)
[2022-07-28] MEDS: CEFEPIME 2,000 MG in SYRINGE 0 ML IV SCH ×2 (07:37→20:53)
[2022-07-28] MEDS: DOCUSATE SODIUM 100 MG CAP PO SCH ×2 (07:40→22:33)
[2022-07-28 07:41] LABS: Basophils # (auto) 0.03 K/uL (0-0.2); Basophils % (auto) 0.3 %; Eosinophils # (auto) 0.02 K/uL (0-0.50); Eosinophils % (auto) 0.2 %; Immature Granulocytes # (auto) 0.09 K/uL (0.00-0.02); Immature Granulocytes % (auto) 0.9 %; Lymphocytes # (auto) 1.08 K/uL (1.2-3.4); Lymphocytes % (auto) 10.8 %; Neutrophils % (auto) 80.8 %
[2022-07-28 07:56] LABS: Albumin Globulin Ratio 0.8 (0.9-2); Albumin Level 2.3 gm/dl (3.4-5.0); BUN Creatinine Ratio 57.6 (10-20); Bilirubin,Total 0.5 mg/dl (0.2-1.0); Calcium 7.5 mg/dl (8.5-10.1); Creatinine Clr Calc Pharmacy 66.1 ml/min; Est GFR (African American) 96.2 ml/min; Globulin 2.8 gm/dl (2.5-4.0); Potassium 3.3 mmol/L (3.5-5.1); Total Protein 5.1 gm/dl (6.0-8.3)
[2022-07-28] MEDS: ACETAMINOPHEN 500 MG TAB PO SCH ×2 (07:57→22:34)
[2022-07-28] MEDS ORDERED: ESCITALOPRAM OXALATE 10 MG TAB PO SCH ×2 (09:00→21:00)
[2022-07-28] MEDS ORDERED: METOPROLOL SUCC 25MG EXT REL TAB PO SCH (09:00)
[2022-07-28] MEDS ORDERED: POTASSIUM CHLORIDE PWD 20 MEQ PACK PO SCH (10:07)
--- NOTE | 2022-07-28 10:22 | XRay Report ---
XR hand RT min 3V routine HISTORY: 87 years-old Female finger swelling. hx of fall acute right hand pain status post fall COMPARISON: 05/04/2014 TECHNIQUE: 3 views of the right hand FINDINGS: Demineralized appearance of the bones. Severe osteoarthritis is most pronounced within the interphala ngeal and first carpometacarpal joints, progressively worsened from the prior study. No acute fractur e, dislocation or opaque foreign body identified. IV catheter is noted. IMPRESSION: 1. No acute fracture or dislocation identified. 1. Demineralized appearance of the bones with severe osteoarthritis. ACT 112: Negative or not required by law. The above report was generated using voice recognition software. It may contain grammatical, syntax o r spelling errors. Electronically signed by: Bharathi Danielson M.D. 07/28/2022 10:21 AM
--- NOTE | 2022-07-28 12:45 | XCELERA ---
[id number]
[2022-07-28] MEDS ORDERED: Nursing to Pharmacy Communication SCH ×2 (16:15→16:30)
--- NOTE | 2022-07-28 18:27 | Hospitalist Progress Note ---
Date of Service July 28, 2022 Assessment & Plan (1) Sepsis secondary to UTI: Plan: Suspected source urine Lactate 3.1, repeat pending NSS 1L given in emergency room and 500ml NSS given prior to arrival. Cefepime 2 g IV given in the emergency room, given immunosuppression with azathioprine we will continue this pending urine and blood cultures No TYREL or CVA tenderness to suggest need for abdominal imaging (2) Visual loss, both eyes: Plan: 30% vision in right, no vision in left. Causing difficulty ambulating (3) Altered mental status: Plan: Suspected secondary to infection above. Per daughter she should not have any opiates in her system (last one on ?Sunday. (4) Closed fracture of pubic ramus: Plan: Acetaminophen 1g PO BID (reduced dose due to autoimmune hepatitis) Avoid opiates due to altered mental status (5) Elevated troponin I level: Plan: No chest pain or shortness of breath to suspect ACS, hoiwever unable to get accurate history from the patient. Will trend to peak. (6) Aortic stenosis, moderate: Plan: We will monitor patient closely on the PCU for respiratory compromise with her IV fluids. (7) HTN (hypertension): Plan: Continue metoprolol succinate 12.5 mg p.o. at bedtime and verapamil sustained- release 120 mg p.o. q8h as long as this doesn't make her hypotensive. (8) Myasthenia gravis: Plan: Reportedly on IVIG for myasthenia gravis. She is not on pyridostigmine per her daughter at bedside. (9) Polymyositis-dermatomyositis: Plan: Controlled with IVIG therapy as outpatient Will get CK with AM labs (10) Autoimmune hepatitis: Plan: Hold azathioprine in the setting of severe infection (11) Glaucoma: Plan: Continue Cosopt eyedrops Will hold methazolamide initially but can be restarted as blood pressure allows Plan VTE prophylaxis - Lovenox 40 mg subcu daily Diet - clear liquids while altered, can advance as mentation improves Disposition - admit to PCU Admission and Anticipated Discharge Date Admission Date: July 27, 2022 Subjective Patient's daughter at bedside Patient reports some nonspecific muscle aches Slight improvement in her right hand pain Review of Systems Review of Systems: Denies fevers or chills Patient partially blind no new visual changes No chest pain or shortness of breath No headache or visual changes Physical Exam Physical Exam: Cardiovascular S1-S2 audible no S3 no rubs Lungs bilateral entry fair no wheezing Abdomen soft no rebound tenderness Extremity shows trace edema Neuro shows no focal deficits Results & Data Results & Data ([facility]) Vital Signs (Past 12 Hours) Vital Signs Temp Pulse Pulse Resp BP BP Pulse Ox 07/28/22 16:50 36.7 C 91 H 22 104/65 96 07/28/22 16:00 87 07/28/22 13:00 36.8 C 87 18 101/65 98 07/28/22 08:00 88 07/28/22 08:00 36.7 C 80 20 95/56 L 95 O2 Del Method 07/28/22 16:50 Room Air 07/28/22 16:00 07/28/22 13:00 Room Air 07/28/22 08:00 07/28/22 08:00 Room Air PG Care Time/CCT Total # of Minutes Spent Total Time Spent with Patient: Total time spent is greater than 50% in coordination of care (as documented) at patient's floor/unit and/or counseling patient: Coding Level of Care Code 94302 Subseq Hosp Care Lvl 2 Diagnoses Sepsis secondary to UTI A41.9; N39.0 Visual loss, both eyes H54.3 Altered mental status R41.82 Closed fracture of pubic ramus S32.599A Elevated troponin I level R77.8 Aortic stenosis, moderate I35.0 HTN (hypertension) I10 Myasthenia gravis G70.00 Polymyositis-dermatomyositis M33.90 Autoimmune hepatitis K75.4 Glaucoma H40.9
[2022-07-28] MEDS ORDERED: LEVALBUTEROL TARTRATE 15 GM HFA.AER.AD INH STA (20:13)
[2022-07-28] MEDS ORDERED: LEVALBUTEROL HCL 0.63 MG/3 ML NEB ONE (20:26)
--- NOTE | 2022-07-28 20:55 | Communication Note ---
Date of Service: July 28, 2022 Notified that patient was feeling anxious and reporting feeling shortness of breath. Nurse also reported diminished lung sounds throughout alongside upper airway wheezes. Upon my arrival into the room, audible upper airway sounds were heard. Patient was tachypneic to the mid 20s. She denied any pain. Did say she felt short of breath. Denied cough. Denied lightheadedness or dizziness. Heart rate approximately 130, oxygen saturation 86% on room air. Generalill appearing 87-year-old female in mild distress secondary to tachypnea. Mouth - n o appreciable glossitis or posterior oropharyngeal swelling. Cardiactachycardic with regular rhythm. Respiratorymild conversational dyspnea with tachypnea, mild accessory muscle use. Inspiratory and expiratory wheezes appreciated. Diminished lung sounds throughout. Extremitiesno significant peripheral edema. Neckno JVD. Dyspnea/Acute Hypoxiapatient's chart was reviewed in detail, as well as echo that was performed today which showed moderate . She has no h/o lung disease noted. In the setting of her sepsis, she is nearly 4 L up. While there are not overt signs of hypervolemia on exam, this is a possibility for etiology. No overt signs of allergic reaction. Possible anxiety component? Will check x-ray and VBG. Give Ativan 0.25mg IV x 1 now. We will continue to monitor for elig ibility for further breathing treatments given tachycardia. Low threshold to escalate to BiPAP should it be needed.
[2022-07-28] MEDS: METOPROLOL SUCC 25MG EXT REL TAB PO SCH (20:56)
[2022-07-28] MEDS ORDERED: LORazepam 0.25 MG in SYRINGE 0 ML IV STA (21:14)
[2022-07-28 21:23] LABS: Base Excess VBG -7.4 mEq/L; HCO3 VBG 20 mmol/L; Oxygen Saturation VBG < 60.0 %; PCO2 VBG 45 mmHg (38-50); PO2 VBG 33 mmHg; pH VBG 7.25 (7.36-7.41)
[2022-07-28] MEDS ORDERED: FUROSEMIDE INJ 20 MG/2 ML VIAL IV ONE ×2 (21:36→21:38)
[2022-07-28] MEDS: MAGNESIUM SULFATE / D5W 1 GM/100 ML BAG IV SCH ×2 (21:42→23:45)
[2022-07-28 22:02] LABS: Hematocrit (blood only) 38.2 % (34.1-44.9); Hemoglobin 12.9 g/dl (12.0-16.0); Mean Corpuscular Hemoglobin 32.7 pg (25.0-34.0); Mean Corpuscular Hgb Conc 33.8 g/dL (32.0-36.0); Mean Corpuscular Volume 96.7 fL (80.0-100.0); Mean Platelet Volume 11.7 fL (9.4-12.3); Nucleated RBC # (auto) 0.02 K/uL (0-0); Nucleated RBC % (auto) 0.1 %; Platelet Count 245 K/uL (130-400); RDW Coefficient of Variation 14.6 % (11.5-14.5); RDW Standard Deviation 51.9 fL (36.4-46.3); Red Blood Count 3.95 M/uL (3.93-5.22); White Blood Count 23.66 K/ul (4.8-10.8)
--- NOTE | 2022-07-28 22:03 | XRay Report ---
SINGLE VIEW CHEST CLINICAL HISTORY: Dyspnea. FINDINGS: An AP, portable, upright chest radiograph is compared to study dated 07/27/2022 and correla quinn with chest CT dated 02/12/2022. The heart is mildly enlarged noting atherosclerotic calcification o f the thoracic aorta. There is pulmonary vascular congestion. There are bilateral airspace opacities. No large pleural effusion is identified. No pneumothorax is seen. The skeletal structures are osteop enic. The bony thorax is grossly intact. IMPRESSION: 1. Cardiomegaly with pulmonary vascular congestion. 2. Bilateral airspace opacities likely represent pulmonary edema. Correlate clinically for evidence o f a superimposed infectious/inflammatory pneumonitis. ACT 112: Negative or not required by law. Electronically signed by: Martin Jorgensen M.D. 07/28/2022 10:01 PM
[2022-07-28 22:21] LABS: Basophils # (auto) 0.07 K/uL (0-0.2); Basophils % (auto) 0.3 %; Echinocytes 3+; Eosinophils # (auto) 0.05 K/uL (0-0.50); Eosinophils % (auto) 0.2 %; Immature Granulocytes # (auto) 0.41 K/uL (0.00-0.02); Immature Granulocytes % (auto) 1.7 %; Lymphocytes # (auto) 1.71 K/uL (1.2-3.4); Lymphocytes % (auto) 7.2 %; Monocytes # (auto) 0.78 K/uL (0.24-0.82); Monocytes % (auto) 3.3 %; Neutrophils # (auto) 20.64 K/uL (1.4-6.5); Neutrophils % (auto) 87.3 %; Ovalocytes 1+
[2022-07-28] MEDS: ENOXAPARIN INJ 40 MG/0.4 ML SYR SQ SCH (22:36)
[2022-07-28] MEDS: LATANOPROST 0.005% OP SOLN 2.5 ML BTL OPL SCH (22:37)
[2022-07-28] MEDS: DORZOLAMIDE/TIMOLOL 22.3/6.8MG/ML 10 ML BTL OP SCH (22:37)
[2022-07-28 22:48] LABS: Albumin Globulin Ratio 0.7 (0.9-2); Albumin Level 2.7 gm/dl (3.4-5.0); BUN Creatinine Ratio 40.7 (10-20); Bilirubin,Total 0.6 mg/dl (0.2-1.0); Calcium 7.7 mg/dl (8.5-10.1); Creatinine Clr Calc Pharmacy 48.2 ml/min; Est GFR (African American) 76.2 ml/min; Est GFR (Non-African American) 65.8 ml/min; Globulin 3.9 gm/dl (2.5-4.0); Potassium 4.4 mmol/L (3.5-5.1); Total Protein 6.6 gm/dl (6.0-8.3); Troponin I High Sensitivity 442.2 pg/ml (0-14)
[2022-07-28] MEDS ORDERED: VANCOMYCIN CONSULT ACTIVE PRN (23:18)
[2022-07-28] MEDS ORDERED: VANCOMYCIN HCL 1,500 MG in SODIUM CHLORIDE 0.9% 500 ML IV ONE (23:30)
[2022-07-28] MEDS ORDERED: OPTIRAY 320 500ml IV ONE (23:40)
[2022-07-29] MEDS ORDERED: AZITHROMYCIN 500 MG in DEXTROSE 5% 250 ML IV SCH
[2022-07-29] MEDS ORDERED: SODIUM CHLORIDE 0.9% 1000ML 250 ML IV ONE (01:21)
--- NOTE | 2022-07-29 01:35 | CT Scan Report ---
CT ANGIOGRAM OF THE CHEST CLINICAL HISTORY: Hypoxia. COMPARISON STUDY: Chest x-ray dated 07/28/2022. Chest CT dated 02/12/2022. TECHNIQUE: Following the IV administration of 113 cc of Optiray 320, CT angiogram of the chest was pe rformed from the upper abdomen to the thoracic inlet utilizing the pulmonary embolus protocol. Images are reviewed in the axial, sagittal, and coronal planes. 3-D MIPS images are created and assessed. I V contrast was administered without complication. A dose lowering technique was utilized adhering to the principles of ALARA. The examination is compromised by motion artifact, as well as by streak art ifact from the right arm which could not be elevated of the chest. CT DOSE: 766.27 mGy.cm FINDINGS: Thyroid: Atrophic. Thoracic aorta: There is atherosclerotic calcification of the thoracic aorta, which is normal in dario carina and demonstrates standard 3-vessel arch anatomy. No dissection is seen. Pulmonary vasculature: The main pulmonary arteries are dilated suggesting pulmonary artery hypertensi on. There are no filling defects identified in main, lobar, or proximal segmental pulmonary branches to suggest pulmonary embolus. The segmental and subsegmental branches are not was assessed due to sig nificant motion artifact, especially in the right lung. Heart: The heart is enlarged noting a small pericardial effusion. Lungs and pleural spaces: Evaluation of the lung parenchyma is compromised by motion artifact. Diffus e intralobular septal thickening is noted. There are foci of patchy groundglass change throughout bot h lungs. There are small pleural effusions with dependent atelectasis. No pneumothorax is seen. The t rachea and central airways appear clear. Mediastinum: There is no mediastinal lymphadenopathy. Shira: Clear. Axillae: There is no axillary lymphadenopathy. Upper abdomen: Partially visualized upper abdominal viscera is within normal limits. Skeletal structures: The skeletal structures are osteopenic. Mild spondylotic change is seen througho ut the thoracic spine. No lytic or blastic bony lesions are seen. IMPRESSION: 1. Significantly streak and motion compromised examination. 2. There is no evidence of central pulmonary embolus in the main, lobar, or proximal segmental pulmon peg arteries. The segmental and subsegmental branches are not well assessed. 3. Cardiomegaly with evidence of congestive failure. 4. Mild groundglass change likely represents pulmonary edema. Correlate clinically for evidence of a superimposed infectious/inflammatory pneumonitis. 5. Small pleural effusions. ACT 112: Negative or not required by law. Electronically signed by: Martin Jorgensen M.D. 07/29/2022 1:34 AM
[2022-07-29] MEDS ORDERED: FUROSEMIDE INJ 20 MG/2 ML VIAL IV ONE ×2 (01:50→01:56)
[2022-07-29] MEDS ORDERED: INSULIN ASPART PER UNIT SC STA (02:23)
[2022-07-29] MEDS ORDERED: DOXYCYCLINE HYCLATE 100 MG in DEXTROSE 5% 100 ML IV SCH (03:00)
[2022-07-29 03:07] LABS: Allen Test POS (Pos); HCO3 ABG 19 mmol/L (19-24); Oxygen Saturation ABG 88.5 % (90-95); PCO2 ABG 45 mmHg (35-46); PO2 ABG 56 mmHg (80-95); pH ABG 7.24 (7.35-7.45)
[2022-07-29] MEDS ORDERED: ICU PROTOCOL FOR HYPERGLYCEMIA PRN (03:15)
[2022-07-29 03:54] LABS: Hematocrit (blood only) 38.7 % (34.1-44.9); Mean Corpuscular Hemoglobin 32.8 pg (25.0-34.0); Mean Corpuscular Hgb Conc 33.6 g/dL (32.0-36.0); Mean Corpuscular Volume 97.7 fL (80.0-100.0); Mean Platelet Volume 11.8 fL (9.4-12.3); Nucleated RBC # (auto) 0.02 K/uL (0-0); Nucleated RBC % (auto) 0.1 %; Platelet Count 232 K/uL (130-400); RDW Coefficient of Variation 14.7 % (11.5-14.5); RDW Standard Deviation 53.1 fL (36.4-46.3); Red Blood Count 3.96 M/uL (3.93-5.22); White Blood Count 27.91 K/ul (4.8-10.8)
[2022-07-29] MEDS ORDERED: ALBUTEROL 0.083% NEBU SOLN 3 ML VIAL ONE (04:23)
[2022-07-29 04:55] LABS: BUN Creatinine Ratio 37.2 (10-20); Calcium 7.8 mg/dl (8.5-10.1); Creatinine Clr Calc Pharmacy 41.5 ml/min; Est GFR (African American) 63.7 ml/min; Est GFR (Non-African American) 54.9 ml/min; Magnesium 2.9 mg/dl (1.7-2.4); Phosphorus 3.1 mg/dl (2.5-4.9); Potassium 4.9 mmol/L (3.5-5.1)
[2022-07-29] MEDS ORDERED: DEXTROSE 50% 50 ML SYRINGE IV PRN (04:55)
[2022-07-29] MEDS ORDERED: PHARMACY GLYCEMIC MGMT CONSULT PRN (04:55)
[2022-07-29] MEDS ORDERED: GLUCOSE 40% GEL 15 GM TUBE PO PRN (04:55)
[2022-07-29] MEDS ORDERED: GLUCOSE 10 TAB/TUBE PO PRN (04:55)
[2022-07-29] MEDS ORDERED: GLUCAGON FOR INJ 1 MG VIAL SQ PRN (04:55)
[2022-07-29] MEDS ORDERED: CARBOHYDRATES FOR HYPOGLYCEMIA PO PRN (04:55)
--- NOTE | 2022-07-29 05:01 | Critical Care Consultation ---
Date of Consultation July 29, 2022 Assessment & Plan (1) Myasthenia gravis with exacerbation, adult form: Likely precipitated by infection Per family, patient is due for IVIG infusion in 1 week Given conservative wishes of family, will hold on aggressive steroid therapy (2) Acute respiratory failure with hypoxia: Diuresed x2 with good response for pulmonary edema on imaging Hold on continue diuresis, patient is very volume sensitive given hemodynamically significant aortic stenosis Continue NIV, no plan for intubation per patient wishes Manage pain and discomfort with PRN low-dose Morphine (per daughter her listed allergy is due to grogginess with opiates) (3) Sepsis secondary to UTI: MSSA and GNR in cultures Continue Cefepime, no current indication for doxycycline could consider stopping, MRSA negative can stop Vancomycin (4) Altered mental status: Likely metabolic in the setting of sepsis Plan Continue Enoxaparin DVT PPX dose No indication for SUP Colin - needed Supervising Physician Co-Signing Physician Notes Beverly JONES History of Present Illness Reason for Consultation: Acute hypoxic respiratory failure Attending Physician: Job Morales MD History of Present Illness Ms. Vega is an 87YO F with a history of myasthenia gravis on [id number] IVIG, aortic stenosis, visual loss, recent pubic ramus fracture, anxiety, dermatomyositis, autoimmune hepatitis who presented to [facility] ED from [facility] due to altered mentation. She was found to have a probable UTI, treated empirically with antibiotics, and admitted for continuation of care. I responded to [employer]RATOR due to worsening mentation and hypoxia. Patient remained on BIPAP on the floor until around 0330 when I was asked to re-evaluate. The patient was more somnolent, toxic-appearing. She was transferred to ICU for closer monitoring with possible intubation for airway protection. On arrival to ICU, patient's oxygen requirement increased significantly. No improvement in mentation. BIPAP settings to 10/8. TV appropriate but continues with guppy-breathing. In light of her chronic conditions, I discussed the patient's course as well as recent decline with family at bedside (daughter and son-in-law). Both have considerable insight into the current situation. They have decided that it would not be Ekta's wish to be placed on a ventilator or r esuscitated in the event of a cardiac arrest. Unable to obtain ROS due to clinical status. Allergies Allergy/AdvReac Type Severity Reaction Status Date / Time ciprofloxacin Allergy Severe SHORTNESS Verified 07/28/22 07:17 OF BREATH atropine Allergy Unknown CAN'T Verified 07/27/22 11:47 REMEMBER celecoxib [From Celebrex] Allergy Unknown CAN'T Verified 07/27/22 11:47 REMEMBER lisinopril Allergy Unknown CAN'T Verified 07/27/22 11:47 REMEMBER Penicillins Allergy Unknown 12/08/11 NO Verified 07/27/22 11:[address] DR CLARK H&P spironolactone Allergy Unknown CAN'T Verified 07/27/22 11:47 REMEMBER valacyclovir Allergy Unknown CAN'T Verified 07/27/22 11:47 REMEMBER codeine AdvReac Intermediate Gastrointestinal Verified 07/27/22 11:47 Upset isosorbide AdvReac Intermediate states it Verified 07/27/22 11:47 caused lichen planus morphine AdvReac Intermediate hallucinati Verified 07/27/22 11:47 on procaine [From Novocain] AdvReac Intermediate Gastrointestinal Verified 07/27/22 11:47 Upset telmisartan AdvReac Intermediate states Verified 07/27/22 11:47 this caused lichen planus escitalopram [From Lexapro] AdvReac Mild Fatigued Verified 07/28/22 06:38 acetaminophen AdvReac Unknown limit to Verified 07/28/22 06:38 2gm/day~AUTOIMMUNE DISORDER--LIVER ISSUES tramadol AdvReac Unknown hallucinati Verified 07/27/22 11:47 ons Home Medications Medication Instructions Recorded Confirmed Type Narcan Spr 4 mg NA DIRECTED PRN .opioid od 07/27/22 07/27/22 History acetaminophen 325 mg tablet 650 mg PO Q4 PRN Pain 07/27/22 07/27/22 History (Tylenol) azathioprine 50 mg tablet 150 mg PO DAILY 07/27/22 07/27/22 History betamethasone valerate 0.12 % 1 applic topical BID PRN .. 07/27/22 07/27/22 History topical foam bisacodyl 10 mg rectal suppository 10 mg [place] DAILY PRN Constipation 07/27/22 07/27/22 History docusate sodium 100 mg tablet 100 mg PO BID 07/27/22 07/27/22 History dorzolamide-timolol (PF) 2 %-0.5 % 1 p ophthalmic (eye) TID 07/27/22 07/27/22 History eye drops in a dropperette (Cosopt (PF)) escitalopram oxalate 5 mg tablet 5 mg PO HS 07/27/22 07/27/22 History heparin (porcine) 5,000 unit/mL 5,000 unit subcut Q8H 07/27/22 07/27/22 History injection solution hydrocodone 5 mg-acetaminophen 325 1 tab PO Q6H PRN .pain 7-10 07/27/22 07/27/22 History mg tablet levothyroxine 125 mcg tablet 125 mcg PO DAILY 07/27/22 07/27/22 History (Synthroid) magnesium hydroxide 400 mg/5 mL 30 ml PO DAILY PRN Constipation 07/27/22 07/27/22 History oral suspension ([employer]) methazolamide 25 mg tablet 25 mg PO BID 07/27/22 07/27/22 History metoprolol succinate 25 mg 12.5 mg PO HS 07/27/22 07/27/22 History tablet,extended release 24 hr mupirocin 2 % topical ointment 1 applic topical BID PRN .SKIN 07/27/22 07/27/22 History INFECTIONS ondansetron HCl 4 mg tablet 4 mg PO Q4 PRN nausea/vomiting 07/27/22 07/27/22 History polyethylene glycol 3350 17 gram 17 g PO .QLUNCH PRN Constipation 07/27/22 07/27/22 History oral powder packet (Miralax) sennosides 8.6 mg-docusate sodium 1 tab-cap PO .QLUNCH PRN 07/27/22 07/27/22 History 50 mg tablet (Senokot-S) Constipation spironolactone 25 mg tablet 12.5 mg PO DAILY 07/27/22 07/27/22 History verapamil 120 mg tablet,extended 120 mg PO Q8 07/27/22 07/27/22 History release Patient History Medical History (Updated 07/29/22 @ 05:12 by Anne Marie Sousa PA-C) Arthritis of multiple sites Autoimmune hepatitis 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) Epistaxis Fall Fracture of right orbital floor High risk medication use HTN (hypertension) Hyperlipidemia Hypothyroidism Injury of right lower leg Myasthenia gravis Pain syndrome, chronic Polymyositis-dermatomyositis Spinal stenosis Type 2 diabetes mellitus Surgical History History of breast biopsy History of esophagogastroduodenoscopy (EGD) History of eye surgery History of hysterectomy History of repair of rectocele History of rotator cuff surgery History of sigmoidoscopy History of tubal ligation Family History Daughter Polymyositis Dermatomyositis Other Diabetes Heart disease Hypertension Nephrolithiasis Denies family history of Ovarian cancer Prostate cancer Breast cancer Colorectal cancer Social History Smoking Status: Never smoker Second Hand Exposure: No; Hx Alcohol Use: No Hx Substance Use: No Preferred Language: Romanian Communication Ability: Impaired Communication Ability Comment: 30% vision to both eyes Visual Impairment: Limited Hearing Ability: Normal Business Advisor Required: No Beliefs That Will Affect Care: None marital status: Current Living Situation: Rehab current occupational status: retired Other Information That Helps Us Care for You: No Feels Safe at Home: Yes Safety Concerns: Feels Safe At This Time Childhood Exposure to Second-Hand Smoke: No caffeine: Yes Dental Care, Regularly: Yes Physical Activity Frequency: 5-6 Times per Week Seatbelt Use: always Sunscreen Use: Yes Assistive Devices: Walker Physical Exam Constitutional: Toxic-appearing chronically-ill elderly woman Eyes: 2-3mm and reactive Respiratory: + labored breathing and + tachypneic Auscultation: + crackles Wheezing R side Cardiovascular: Rate/Rhythm: regular rhythm and + tachycardic Heart Sounds: + murmur Gastrointestinal (Abdomen): normal bowel sounds, soft, nontender, no hepatosplenomegaly Skin: no rashes, warm and dry Neurologic: + confused Results & Data Results & Data ([facility]) Vital Signs (Past 12 Hours) Vital Signs Temp Pulse Pulse Pulse Resp BP Pulse Ox 07/29/22 03:15 07/29/22 04:27 118 H 30 H 90 07/29/22 03:09 123 H 28 H 92 07/29/22 00:00 07/29/22 00:43 36.9 C 120 H 20 109/72 91 07/28/22 23:45 116 H 20 97 07/28/22 21:00 155 H 27 H 98 07/28/22 21:00 155 H 27 H 98 07/29/22 00:00 143 H 07/28/22 20:44 130 H 26 H 84 L 07/28/22 19:46 37.3 C 118 H 22 123/75 96 Pulse Ox O2 Del Method O2 Del Method FiO2 07/29/22 03:15 91 BiPAP 07/29/22 04:27 100 07/29/22 03:09 65 07/29/22 00:00 BiPAP 07/29/22 00:43 07/28/22 23:45 BiPAP 40 07/28/22 21:00 BiPAP 40 07/28/22 21:00 40 07/29/22 00:00 07/28/22 20:44 Room Air 07/28/22 19:46 Room Air Coding Level of Care Code 66199 Inpt Consult Level 1 Diagnoses Myasthenia gravis with exacerbation, adult form G70.01 Acute respiratory failure with hypoxia J96.01 Sepsis secondary to UTI A41.9; N39.0 Altered mental status R41.82
[2022-07-29] MEDS ORDERED: INSULIN ASPART PER UNIT SC ONE (05:15)
[2022-07-29] MEDS: NSS + 20MEQ KCL 20 MEQ/1,000 ML BAG IV SCH (05:33)
[2022-07-29] MEDS: LEVOTHYROXINE SODIUM 125 MCG TABLET PO SCH (05:35)
[2022-07-29] MEDS: VERAPAMIL HCL 120 MG TABCR PO SCH (05:35)
[2022-07-29] MEDS ORDERED: MoRPHine SULFATE 2 MG/ML CARP IV STA (06:20)
--- NOTE | 2022-07-29 07:07 | Electrocardiogram Report ---
Test Reason : Blood Pressure : / mmHG Vent. Rate : 135 BPM Atrial Rate : 135 BPM P-R Int : 132 ms QRS Dur : 102 ms QT Int : 278 ms P-R-T Axes : 074 063 070 degrees QTc Int : 417 ms Sinus tachycardia with Premature supraventricular complexes Possible Left atrial enlargement Abnormal ECG When compared with ECG of 27-JUL-2022 09:06, Premature supraventricular complexes are now Present Confirmed by Juan Daniel Rodriguez ([id number]) on 07/29/2022 7:07:00 AM Referred By: REFERRED SELF Confirmed By:Tomy Rodriguez
[2022-07-29] MEDS: DOCUSATE SODIUM 100 MG CAP PO SCH (07:36)
[2022-07-29] MEDS: ACETAMINOPHEN 500 MG TAB PO SCH ×2 (07:37→20:39)
[2022-07-29] MEDS ORDERED: GLYCOPYRROLATE 0.2 MG/ML VIAL IV PRN (08:07)
[2022-07-29] MEDS ORDERED: ONDANSETRON 4 MG OD TAB SL PRN (08:07)
[2022-07-29] MEDS ORDERED: LORazepam 0.5 MG in SYRINGE 0 ML IV PRN (08:07)
[2022-07-29] MEDS ORDERED: MoRPHine BOLUS from BAG IV PRN (08:07)
[2022-07-29] MEDS ORDERED: LORazepam 0.5 MG TAB PO PRN (08:07)
[2022-07-29] MEDS ORDERED: ONDANSETRON INJ 2 MG/ML 2 ML VIAL IV PRN (08:07)
[2022-07-29] MEDS: INSULIN ASPART PER UNIT SC SCH ×2 (08:14→11:54)
[2022-07-29] MEDS ORDERED: MoRPHine SULF/NSS 250 MG/250 ML BTL IV SCH (08:15)
--- NOTE | 2022-07-29 08:15 | Communication Note ---
Date of Service: July 29, 2022 Patient seen and examined. Discussed with critical care staff as well as critical care BRUNA from overnight. Met with family at bedside and discussed with respiratory therapy. Patient continues to decline despite BiPAP. She exhibits respiratory distress and increased work of breathing despite maximal settings on her BiPAP. Reviewed laboratory studies. She is bacteremic with UTI. May have underlying pneumonia as well. There is evidence of fluid overload. Multiple valvular abnormalities identified on echocardiogram including AAS, and MR. Lactic acidosis despite normal blood pressure and electrolyte abnormalities. I do long discussion with the patient's son, daughter, son-in-law, and [id number] at the bedside. They state the patient has been declining clinically and is very unsatisfied with her quality of health due to inability to see. She is falling at home. She is got out of rehab and states that she had no intention of going back to rehab. I advised the family that she appears to be failing noninvasive positive pressure ventilation and if we were to pursue additional efforts would require intubation mechanical ventilation with an unclear endpoint. Given her underlying neuromuscular weakness, its unclear if we would be able to get her off the ventilator or not. We certainly would not improve many of the quality of life issues that she is suffering from now and in all likelihood best case scenario would be to get the patient back to rehab center or fpc facility which she had adamantly expressed a desire to not pursue previously. I discussed with the patient's family that at this point time I think we need to either transition to comfort measures or pursue more aggressive approach with intubation mechanical ventilation and seeing whether or not we can medically optimize any of her underlying medical conditions. The family is uniform in agreement that the patient would not want to pursue a ggressive interventions and that we would be pursuing quality of life that she would find unacceptable. I outlined what palliative care and comfort care measures would look like. The family is very comfortable proceeding with symptom management acknowledging that the patient will likely pass away in short order. Discussed with nursing and respiratory therapy. We will discontinue BiPAP as it appears to be uncomfortable for the patient and not ultimately effective. We will initiate morphine for dyspnea management as well as Ativan for anxiety management. Additional critical care time, 55 minutes including end-of-life discussions Coding Level of Care Code Critical Care malgorzata addt'l 30 min
[2022-07-29] MEDS: MoRPHine SULFATE 2 MG/ML CARP IV PRN ×3 (08:17→23:34)
[2022-07-29] MEDS: DORZOLAMIDE/TIMOLOL 22.3/6.8MG/ML 10 ML BTL OP SCH ×2 (08:21→14:25)
[2022-07-29] MEDS ORDERED: POTASSIUM CHLORIDE PWD 20 MEQ PACK PO SCH (09:00)
[2022-07-29] MEDS: CEFEPIME 2,000 MG in SYRINGE 0 ML IV SCH (15:01)
--- NOTE | 2022-07-29 17:21 | Hospitalist Progress Note ---
Date of Service July 29, 2022 Assessment & Plan (1) Myasthenia gravis with exacerbation, adult form: Plan: Likely precipitated by infection This had led to progressive respiratory distress and decline in respiratory status Per family, patient is due for IVIG infusion in 1 week After family meeting with the critical care team decision made to de-escalate care and opt for comfort measures (2) Acute respiratory failure with hypoxia: Plan: Diuresed x2 with good response for pulmonary edema on imaging As patient has underlying aortic stenosis that is critical we will hold off on aggressive diuresis Patient's family has opted for comfort care so no intubation plans to honor patient's wishes Continue as needed morphine (3) Sepsis secondary to UTI: Plan: MSSA and GNR in cultures Continue Cefepime, no current indication for doxycycline could consider stopping, MRSA negative can stop Vancomycin (4) Altered mental status: Plan: Likely metabolic in the setting of sepsis Plan Continue Enoxaparin DVT PPX dose No indication for SUP Colin - needed Admission and Anticipated Discharge Date Admission Date: July 27, 2022 Subjective Patient's family at bedside in the ICU After discussion with critical care team family has opted for comfort care Pain control acceptable Physical Exam Physical Exam: Cardiovascular S1-S2 audible no S3 no rubs positive systolic murmur Lungs bilateral entry decreased at bases Abdomen soft no rebound tenderness Extremity shows trace edema Neuro shows no focal deficits patient's somnolent Results & Data Results & Data ([facility]) Vital Signs (Past 12 Hours) Vital Signs Temp Pulse Resp Pulse Ox O2 Del Method O2 Flow Rate FiO2 07/29/22 16:07 Nasal Cannula 2 07/29/22 07:40 110 H 32 H 89 L BiPAP 1.0 07/29/22 07:40 BiPAP 1.0 07/29/22 07:52 36.7 C 07/29/22 07:38 111 H 28 H 92 100 07/29/22 05:40 120 H 19 92 BiPAP 100 07/29/22 05:30 118 H 26 H 91 07/29/22 05:20 120 H 30 H 92 07/29/22 06:13 36.8 C PG Care Time/CCT Total # of Minutes Spent Total Time Spent with Patient: Total time spent is greater than 50% in coordination of care (as documented) at patient's floor/unit and/or counseling patient: Coding Level of Care Code 00884 Subseq Hosp Care Lvl 2 Diagnoses Myasthenia gravis with exacerbation, adult form G70.01 Acute respiratory failure with hypoxia J96.01 Sepsis secondary to UTI A41.9; N39.0 Altered mental status R41.82
--- NOTE | 2022-07-30 00:57 | Death Pronouncement Note ---
Date of Service July 30, 2022 Pronouncement Note Admission Date July 27, 2022 Date and Time of Date of : 07/30/22 Time of : 00:51 Summary I was called to pronounce the of Ekta Vega ( [id number]) by her nurse, Teri, on 07/30/22. Upon entering the room, patient was found to be in a terminal state. They were unresponsive to, and did not withdrawal from, verbal or tactile stimuli. They were unresponsive to corneal, pupillary, and oculocephalic reflexes. On cardiopulmonary exam, they were found to be without detectable carotid pulses, and without spontaneous heart tones or respirations. Time of was pronounced by me on July 30, 2022 at 00:51. Attending physician was notified was notified. Patient's family was at the bedside. Condolences were offered. Signed: Bridger Soto MD Additional Data Confirmation of : no pulse, no respirations, no heart sounds and pupils fixed and dilated Pronouncement Performed By: Resident Physician Family: at bedside Attending/PCP notified?: Yes Attending physician: Maryjo Nevarez, DO Was code activated?: No Autopsy requested?: No claims examiner notified?: No Resident Activity Tracking Resident Involvement: Resident Care Provided Care Provided: Adult Hospital Medicine
--- NOTE | 2022-07-30 01:03 | Discharge Summary ---
Date of Service July 30, 2022 Admission HPI Per Admitting Provider Ekta Vega is an 87 year old female who presents to the ER via EMS from [facility] with altered mental status. History is obtained from notes from [facility], [facility] and daughter at bedside. Unable to get any meaningful history from the patient due to altered mental status. The patient's baseline is orientated x3, no significant confusion but mild dementia where she will mix up events occasionally, walking independently. She fell on 07/07/22 tripping accidently over a humidifier. She came to the ER on 07/21/22 due to worsening right him and knee pain. She was diagnosed with subacute nondisplaced healing fractures of left inferior and superior pubic rami and medial right pubic bone. Given non-surgical nature of this she was discharged straight to [facility] from the emergency room for inpatient rehabilitation. She became less alert and less able to participate in physical therapy as the week went on. Initially she was on opiates for pain relief which her daughter asked to stop on Sunday or Sunday. She mainly slept yesterday and given increased lethargy today she was sent to the ER for further workup. She currently is confused but denies any pain, urinary symptoms or upper respiratory symptoms. 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 She also has a significant history of myasthenia gravis 10-15 years ago requiring a feeding tube and was previosuly wheelchair bound until this was treated at [facility]. She takes azathioprine for autoimmune hepatitis. Admission Exam Per Admitting Provider Constitutional: well developed; + not well nourished and no acute distress Eyes: + anicteric sclerae; normal pupil size ( unable to test reflex as patient unable to keep eyes open) ENMT: Mouth: + dry oral mucous membranes Neck: trachea midline, no thyromegaly Respiratory: + retractions, + uses accessory muscles and + prolonged expiratory phase Auscultation: lungs clear to auscultation bilaterally; no crackles, no rales, no rhonchi and no wheezes Cardiovascular: Rate/Rhythm: regular rate and regular rhythm Heart Sounds: + murmur (loudest in apex, daughter reports chronic) Extremities: normal capillary refill and + pedal edema; no calf tenderness Gastrointestinal (Abdomen): Inspection/Auscultation: abdomen normal to inspection and normal bowel sounds; abdomen not distended Percussion/Palpation: abdomen soft; abdomen nontender, no guarding and abdomen not rigid Skin: no rashes, warm and dry (no areas of cellulitis seen but unable to exam back on admission) Neurologic: moves all extremities, awake (falls asleep easily) and + confused; no focal motor deficits (no lateralizing deficit) Speech / Cognition: normal speech Psychiatric: Orientation: alert, oriented to person and oriented to place; + not oriented to time Genitourinary: no CVA tenderness Principal Diagnosis Sepsis secondary to UTI Acute respiratory failure with hypoxia Myasthenia gravis with exacerbation Discharge Exam Upon entering the room, patient was found to be in a terminal state. They were unresponsive to, and did not withdrawal from, verbal or tactile stimuli. They were unresponsive to corneal, pupillary, and oculocephalic reflexes. On cardiopulmonary exam, they were found to be without detectable carotid pulses, and without spontaneous heart tones or respirations. Discharge Data Allergies Allergy/AdvReac Type Severity Reaction Status Date / Time ciprofloxacin Allergy Severe SHORTNESS Verified 07/28/22 07:17 OF BREATH atropine Allergy Unknown CAN'T Verified 07/27/22 11:47 REMEMBER celecoxib [From Celebrex] Allergy Unknown CAN'T Verified 07/27/22 11:47 REMEMBER lisinopril Allergy Unknown CAN'T Verified 07/27/22 11:47 REMEMBER Penicillins Allergy Unknown 12/08/11 NO Verified 07/27/22 11:[address] DR CLARK H&P spironolactone Allergy Unknown CAN'T Verified 07/27/22 11:47 REMEMBER valacyclovir Allergy Unknown CAN'T Verified 07/27/22 11:47 REMEMBER codeine AdvReac Intermediate Gastrointestinal Verified 07/27/22 11:47 Upset isosorbide AdvReac Intermediate states it Verified 07/27/22 11:47 caused lichen planus morphine AdvReac Intermediate hallucinati Verified 07/27/22 11:47 on procaine [From Novocain] AdvReac Intermediate Gastrointestinal Verified 07/27/22 11:47 Upset telmisartan AdvReac Intermediate states Verified 07/27/22 11:47 this caused lichen planus escitalopram [From Lexapro] AdvReac Mild Fatigued Verified 07/28/22 06:38 acetaminophen AdvReac Unknown limit to Verified 07/28/22 06:38 2gm/day~AUTOIMMUNE DISORDER--LIVER ISSUES tramadol AdvReac Unknown hallucinati Verified 07/27/22 11:47 ons Consultations 07/27/22 13:00 ED Decision to Admit Stat 07/29/22 04:39 Consult Sprinkler Tender Routine 07/29/22 08:07 Consult Palliative Care Routine Ordered Studies 07/28/22 21:39 CT angio chest PE protocol Stat Hospital Course (1) Myasthenia gravis with exacerbation, adult form: Likely precipitated by infection. This had led to progressive respiratory distress and decline in respiratory status beginning on 07/28/22. After family meeting with the critical care team decision made to de-escalate care and opt for comfort measures (2) Acute respiratory failure with hypoxia: Multifactorial etiology. Secondary to the above and acute CHF. Diuresed x2 with good response for pulmonary edema on imaging. Patient's family has opted for comfort care so no intubation plans to honor patient's wishes. She was transferred to [facility] prior to her expiration. (3) Sepsis secondary to UTI: MSSA and GNR in cultures. Continue Cefepime, no current indication for doxycycline could consider stopping, MRSA negative can stop Vancomycin (4) Altered mental status: Likely metabolic in the setting of sepsis Total Time Total Time Spent Total Time Spent (In Minutes): 15 Discharge Plan Discharge Items Patient Disposition: Reason For Visit: UTI SEPSIS Discharge Diagnosis: Sepsis secondary to UTI Acute respiratory failure with hypoxia Myasthenia gravis with exacerbation Follow-up/Referrals: Stanley Zavaleta MD [Primary Care Provider] - Add Attending Provider Instructions: I was called to pronounce the of Ekta Vega ( 1935) by her nurse, Teri, on 07/30/22. Upon entering the room, patient was found to be in a terminal state. They were unresponsive to, and did not withdrawal from, verbal or tactile stimuli. They were unresponsive to corneal, pupillary, and oculocephalic reflexes. On cardiopulmonary exam, they were found to be without detectable carotid pulses, and without spontaneous heart tones or respirations. Time of was pronounced by me on July 30, 2022 at 00:51. Attending physician was notified was notified. Patient's family was at the bedside. Condolences were offered. Medications and DC Order Prescriptions: No Action verapamil 120 mg Tablet Extended Release 120 mg PO Q8 acetaminophen [Tylenol] 325 mg Tablet 650 mg PO Q4 PRN (Reason: Pain) polyethylene glycol 3350 [Miralax] 17 gram Powder In Packet 17 g PO .QLUNCH PRN (Reason: Constipation) hydrocodone-acetaminophen [Lortab 5-325] 5-325 mg Tablet 1 tab PO Q6H PRN (Reason: .pain 7-10) ondansetron HCl [Zofran] 4 mg Tablet 4 mg PO Q4 PRN (Reason: nausea/vomiting) sennosides-docusate sodium [Senokot-S] 8.6-50 mg Tablet 1 tab-cap PO .QLUNCH PRN (Reason: Constipation) azathioprine 50 mg Tablet 150 mg PO DAILY spironolactone 25 mg Tablet 12.5 mg PO DAILY magnesium hydroxide [Milk of Magnesia] 400 mg/5 mL Suspension 30 ml PO DAILY PRN (Reason: Constipation) bisacodyl 10 mg Suppository 10 mg [place] DAILY PRN (Reason: Constipation) levothyroxine [Synthroid] 125 mcg Tablet 125 mcg PO DAILY methazolamide 25 mg Tablet 25 mg PO BID mupirocin 2 % ointment 1 applic TOPICAL BID PRN (Reason: .SKIN INFECTIONS) metoprolol succinate 25 mg tablet extended release 24 hr 12.5 mg PO HS betamethasone valerate 0.12 % Foam 1 applic TOPICAL BID PRN (Reason: ..) heparin (porcine) 5,000 unit/mL Solution 5,000 unit SUBCUT Q8H docusate sodium 100 mg Tablet 100 mg PO BID escitalopram oxalate 5 mg tablet 5 mg PO HS dorzolamide-timolol (PF) [Cosopt (PF)] 2-0.5 % Dropperette 1 drp OPHTHALMIC (EYE) TID Narcan Spr 4 mg NA DIRECTED PRN (Reason: .opioid od) Rx Instructions: 4 mg = 0.1ml, spray Admission Data Admit Date/Time: 07/27/22 13:11 Attending Provider: Job Morales Admit Provider: Tremaine Xiong Primary Care Provider: Stanley Zavaleta Other Providers: Tremaine Xiong ; Miles Paul ; Sadaf Hardin Other Date/Time: 07/30/22 00:51 Resident Activity Tracking Resident Involvement: Resident Care Provided Care Provided: Adult Hospital Medicine
--- NOTE | 2022-08-09 05:22 | Coding Query ---
CODING QUERY To promote full compliance with coding requirements relating to patient care, provider participation is requested in all cases of certified procedural coder uncertainty. Please assist us with the question(s) below: Coding Question(s): 87 Y/O female admitted with Altered Mental status, Sepsis & Myasthena Gravis exac. Per Discharge Summary, Critical Care note and Progress notes " Altered mental status likely metabolic in nature in the setting of Sepsis". Seeking to clarify the diagnosis that clariifes the metabolic altered mental status . Please document, if known or suspected, the diagnosis that describes the altered mental status ( due to Sepsis) that was treated/monitored during this Hospital stay. Thanks for yoru help! Bernard Guzman, [facility] Physician's Response(s): Patient with metabolic encephalopathy most likely secondary to sepsis from urinary source. Patient with UTI. Principal Diagnosis: "that condition established after study, to be chiefly responsible for occasioning the admission of the patient to the hospital for care." Co-Existing Principal Diagnosis: "when two or more diagnoses equally meet the criteria for principal diagnosis as determined by the circumstances of admission, diagnostic work up, and/or therapy provided, and the Alphabetic Index, Tabular List, or another coding guideline does not provide sequencing direction, any one of the diagnoses may be sequenced first." "When the physician has documented what appears to be a current diagnosis in the body of the record, but has not included the diagnosis in the final diagnostic statement, the physician should be asked whether the diagnosis should be added." (Source [facility]oding [facility] 2 QTR90. p3-4) DEONDRE
== END 2022-07-30 02:15 | disposition expired | DRG 871 ==
LOC: ED 08:48 → 4W 13:11 → SUATTDRO 13:11 → 4W 16:30 → 1E 07-29 04:43 → 3E 07-29 14:38